=== PATIENT | female | born 1950 | race Caucasian/White ===

== ENCOUNTER 2018-02-19 06:25 | Day surgery (SDC) | payer MEDICARE ==
--- NOTE | 2018-02-18 09:31 | HP ---
DATE: 02/19/18 ANTICIPATED PROCEDURE: 1. Colonoscopy. HISTORY OF PRESENT ILLNESS: 67 years old. 3-4 years out from a previous colonoscopy with polyps. PAST MEDICAL HISTORY: ALLERGIES: NONE. CURRENT MEDICATIONS: Omeprazole. SURGERIES: Thyroidectomy, vocal cord surgery, shoulder surgery, . SOCIAL HISTORY: Negative. FAMILY HISTORY: Negative. PHYSICAL EXAMINATION: Vital signs normal. CHEST: Clear. COR: Regular. IMPRESSION: 1. FOLLOW-UP SCREENING.
[~2018-02-19 06:25] MED LIST: Lactated Ringers 1,000 ML IV ONE
[2018-02-19] MEDS ORDERED: DIPRIVAN 200 MG/20 ML IV ONE (06:26)
[2018-02-19] MEDS ORDERED: Ketamine HCl 50 MG/ML IJ ONE (06:26)
[2018-02-19] MEDS ORDERED: Lactated Ringers 1,000 ML IV SCH (07:00)
[2018-02-19 10:19] VITALS: O2SAT 93
[2018-02-19 10:24] VITALS: BP 133/74; PULSE 61
--- NOTE | 2018-02-23 09:01 | OP ---
PROCEDURE DATE/TIME: 02/19/2018 0914. PREOPERATIVE DIAGNOSIS: A 3-4 year follow-up of polyps. POSTOPERATIVE DIAGNOSIS: Normal except for moderate internal hemorrhoids, moderate diverticulosis of the sigmoid colon. PROCEDURE: Colonoscopy complete to cecum. SURGEON: Dr. Adam Lujan. TRAFFIC CONTROL TECHNICIAN: Dr. Ricketts. ANESTHESIA: MAC. COMPLICATIONS: None. CONDITION: Stable. INDICATION FOR PROCEDURE: Patient requiring evaluation. DESCRIPTION OF PROCEDURE: The patient was taken to the endoscopy suite. MAC sedation provided. Anal digital examination satisfactory. Satisfactory tone. Scope was introduced. Moderate internal hemorrhoids. There was moderate diverticulosis with a fair amount of angulation. Care and patience was exercised. The scope was sequentially advanced. Scope advanced to the cecum. Base of the cecum, ileocecal valve were normal. There was one incidental small submucosal lipoma in the transverse colon. Splenic flexure, descending, sigmoid with moderate almost severe diverticulosis present. Scope withdrawn. The patient tolerated the procedure satisfactorily. Findings discussed with the family in the waiting room. We will move her follow-up out to five years.
== END 2018-02-19 10:35 | disposition home or self-care (01) ==
LOC: SDC 06:25
PROVIDERS: ATTEND Surgery
DX: Z12.11 Encounter for screening for malignant neoplasm of colon (principal); K64.8 Other hemorrhoids; K57.30 Diverticulosis of large intestine without perforation or abscess without bleeding; Z86.010 Personal history of colon polyps
CPT/HCPCS: J2704

== ENCOUNTER 2020-12-06 13:10 | Day surgery (SDC) | payer MEDICARE ==
[2020-12-06] MEDS ORDERED: BUPIVACAINE 0.5% VIAL IJ ONE (13:11)
[2020-12-06] MEDS ORDERED: Depo-Medrol 40 MG/ML IM ONE (13:11)
[2020-12-06] MEDS ORDERED: Lactated Ringers 1,000 ML IV ONE (13:53)
[2020-12-06] MEDS ORDERED: Ketamine HCl 50 MG/ML ONE (14:58)
[2020-12-06] MEDS ORDERED: DIPRIVAN 200 MG/20 ML IV ONE (14:58)
--- NOTE | 2020-12-06 16:28 | XRAY ---
Indication: Right hip injection. Intraoperative fluoroscopy provided for 6 seconds. Single digital spot image obtained prone demonstrates needle tip projecting just lateral to the right greater trochanter. Small amount of contrast injected for needle tip placement. Correlate with intraoperative findings/report.
--- NOTE | 2020-12-06 16:28 | XRAY ---
Indication: Right SI joint injection. Intraoperative fluoroscopy provided for 6 seconds. 2 digital spot images submitted for interpretation demonstrates posterior needle tip projecting over the inferior right SI joint. Correlate with intraoperative findings/report.
--- NOTE | 2020-12-06 16:30 | XRAY ---
6 seconds fluoroscopy time in surgery for injection of the greater trochanteric bursa of the right hip.
--- NOTE | 2020-12-06 16:30 | XRAY ---
6 seconds fluoroscopy time in surgery for injection of the right SI joint.
== END 2020-12-06 15:27 | disposition home or self-care (01) ==
LOC: SDC-PAIN 13:10
PROVIDERS: ATTEND Psychiatry & Neurology Pain Medicine
DX: M46.1 Sacroiliitis, not elsewhere classified (principal); M70.61 Trochanteric bursitis, right hip; J44.9 Chronic obstructive pulmonary disease, unspecified; G47.30 Sleep apnea, unspecified; Z79.899 Other long term (current) drug therapy
CPT/HCPCS: 20610; 27096; 72020; 73501; 77002; G0260; 99100; J1030; J2704; Q9966

== ENCOUNTER 2021-04-11 12:39 | Day surgery (SDC) | payer MEDICARE ==
[2021-04-11] MEDS ORDERED: BUPIVACAINE 0.5% VIAL IJ ONE (12:40)
[2021-04-11] MEDS ORDERED: Depo-Medrol 40 MG/ML IM ONE (12:40)
[2021-04-11] MEDS ORDERED: DIPRIVAN 200 MG/20 ML IV ONE (14:10)
[2021-04-11] MEDS ORDERED: Lactated Ringers 1,000 ML IV ONE (16:37)
--- NOTE | 2021-04-11 16:40 | XRAY ---
Indication: Bilateral SI joint injections. Intraoperative fluoroscopy provided for 21 seconds. 2 lateral digital spot image submitted for interpretation demonstrates posterior needle tip projecting mid sacrum. Correlate with intraoperative findings/report.
--- NOTE | 2021-04-11 16:43 | XRAY ---
Indication: Bilateral greater trochanter bursa injections. Intraoperative fluoroscopy provided for 17 seconds. 2 digital spot image submitted for interpretation demonstrates needle tip projecting lateral to the left and right greater trochanters. Small amount of contrast injected for both needle tip placement. Correlate with intraoperative findings/report.
--- NOTE | 2021-04-11 17:01 | XRAY ---
21 seconds fluoroscopy time in surgery for injections of both SI joints.
--- NOTE | 2021-04-11 17:12 | XRAY ---
17 seconds fluoroscopy time in surgery for injections of bilateral greater trochanters of both hips.
== END 2021-04-11 14:42 | disposition home or self-care (01) ==
LOC: SDC-PAIN 12:39
PROVIDERS: ATTEND Psychiatry & Neurology Pain Medicine
DX: M46.1 Sacroiliitis, not elsewhere classified (principal); M70.62 Trochanteric bursitis, left hip; M70.61 Trochanteric bursitis, right hip; Z79.899 Other long term (current) drug therapy
CPT/HCPCS: 20610; 27096; 72202; 73521; 77002; 99100; J1030; J2704; Q9966; G0260

== ENCOUNTER 2021-05-14 12:43 | Observation (INO) | payer MEDICARE ==
--- NOTE | 2021-05-14 14:35 | ERPHSYRPT ---
- History of Present Illness Source: patient Exam Limitations: no limitations Patient Subjective Stated Complaint: Pt went to [facility] and was found to have a pleural effusion and was then sent to the ER for further testing Triage Nursing Assessment: Pt was brought to the ER by her daughter, vitals wnl, denies pain, appears short of breath, bounding pulses, skin n/w/d, denies any other issues Physician History: 70 yo wf w h/o COPD presents w increasing dyspnea for 4 days, mild cough, and mild coryza. Pt seen in clinic today and sent to ER. She denies fever/ESQUEDA/myalgias/chest pain/N/V/melena/hematochezia. Pt is fully vaccinated for CV19. Timing/Duration: other (4 days) Activities at Onset: rest Severity of Dyspnea-Max: mild Severity of Dyspnea-Current: mild Possible Cause: chronic episodes Modifying Factors: Improves With: activity Associated Symptoms: productive cough, No chest pain/discomfort, No edema, No fever, No insomnia, No loss of appetite, No lightheadedness, No wheezing, No weakness, No ankle swelling, No chills, No hemoptysis, No calf pain, No dizziness, No heaviness, No heart racing, No lightheadedness, No leg swelling, No muscle spasms feet, No muscle spasms hands, No painful breathing, No sweating, No tightness Allergies/Adverse Reactions: No Known Drug Allergies Allergy (Verified 05/14/21 13:06) Home Medications: Levothyroxine Sodium 112 mcg PO DAILY 02/04/18 [History] Omeprazole 20 MG [Prilosec 20 mg] 20 mg PO BID 02/04/18 [History] Escitalopram Oxalate 10 mg [Lexapro 10 MG] 10 mg PO HS 05/14/21 [History] Gabapentin 300 mg [Neurontin 300 mg] 300 mg PO 05/14/21 [History] Ropinirole HCl 2 mg PO 05/14/21 [History] Tiotropium [employer] [Spiriva] 1 mcg IH UD 05/14/21 [History] Travel Risk - International Travel Have you traveled outside of the country in past 3 weeks: No - Coronavirus Screening Are you exhibiting any of the following symptoms?: Yes Symptoms: Shortness of Breath Close contact with a COVID-19 positive Pt in past 14-21 Days: No - Vaccine Status Have you recieved a Covid-19 vaccination: Yes Cell Preparer: Pfizer - Vaccination Dates Date of 2cond Vaccination (if applicable): 10/2020 - Review of Systems Constitutional: No Symptoms Eyes: No Symptoms Ears, Nose, & Throat: No Symptoms Respiratory: Cough, Dyspnea, Dyspnea on Exertion (BAKER) Cardiac: No Symptoms Abdominal/Gastrointestinal: No Symptoms Genitourinary Symptoms: No Symptoms Musculoskeletal: No Symptoms Skin: No Symptoms Neurological: No Symptoms Psychological: No Symptoms Endocrine: No Symptoms Hematologic/Lymphatic: No Symptoms Immunological/Allergic: No Symptoms - Past Medical History Pertinent Past Medical History: Yes Neurological History: No Pertinent History ENT History: No Pertinent History Cardiac History: Other Respiratory History: Bronchitis, COPD Endocrine Medical History: Hypothyroidism Musculoskeletal History: Osteoarthritis GI Medical History: GERD History: No Pertinent History Psycho-Social History: Anxiety Female Reproductive Disorders: No Pertinent History Other Medical History: SEES DR. MAYS DUE TO HX OF SLIGHTLY ENLARGED HEART. GERD. SX HX: THYROIDECTOMY, CHOLECYSTECTOMY, RIGHT ROTATOR CUFF REPAIR 2005 - Past Surgical History Past Surgical History: Yes Neuro Surgical History: No Pertinent History Cardiac: No Pertinent History Respiratory: No Pertinent History Gastrointestinal: Cholecystectomy Genitourinary: No Pertinent History Musculoskeletal: Orthopedic Surgery Female Surgical History: Section Other Surgical History: Rotator cuff repair, r knee. colonoscopy - Social History Smoking Status: Former smoker How long have you smoked: 25 years Exposure to second hand smoke: No Drug Use: none Patient Lives Alone: No Significant Family History: no pertinent family hx - Female History Hx Now: No - Nursing Vital Signs Nursing Vital Signs: Initial Vital Signs Temperature 98.4 F 05/14/21 12:58 Pulse Rate 70 05/14/21 12:58 Respiratory Rate 15 05/14/21 12:58 Blood Pressure 127/55 05/14/21 12:58 O2 Sat by Pulse Oximetry 100 05/14/21 12:58 Pain Scale Pain Intensity 0 WNL - Physical Exam General Appearance: no apparent distress Eye Exam: PERRL/EOMI, eyes nml inspection Ears, Nose, Throat Exam: hearing grossly normal, normal ENT inspection, normal pharynx Neck Exam: normal inspection, non-tender, supple, full range of motion, No Brudzinski, No Kernig's, No meningismus Respiratory Exam: normal breath sounds, lungs clear, airway intact, No respiratory distress Cardiovascular/Chest Exam: normal heart sounds, regular rate/rhythm, normal peripheral pulses, No murmur, No edema, No JVD Abdominal/Gastrointestinal Exam: soft, normal bowel sounds Extremity Exam: non-tender, normal range of motion, normal inspection, normal capillary refill, no calf tenderness Peripheral Pulses Exam: carotid (R): 2+, carotid (L): 2+ Neurologic Exam: alert, oriented x 3, cooperative, dry goods clerk II-XII nml as tested, normal mood/affect, nml cerebellar function, nml station & gait, sensation nml Skin Exam: normal color, warm, dry Lymphatic Exam: No adenopathy SpO2 Interpretation: normal SpO2: 90 - Course EKG Interpreted by Me: RATE (NSR/R69/RBBB/Poosible old inferior [place]/Prolonged QTc) Ordered Tests: Active Orders 24 hr Category Date Time Status EKG-ER Only STAT Care 05/14/21 14:35 Completed CBC AM.LAB Lab 05/15/21 04:00 Ordered CBC W DIFF Stat Lab 05/14/21 14:35 Results CMP AM.LAB Lab 05/15/21 04:00 Ordered CMP Stat Lab 05/14/21 14:52 Completed Manual Differential NC Stat Lab 05/14/21 14:35 Results NT PRO BNP Stat Lab 05/14/21 14:52 Completed PROTIME WITH INR Stat Lab 05/14/21 14:52 Completed PTT Stat Lab 05/14/21 14:52 Completed Pathologist Review Stat Lab 05/14/21 14:35 Results Stool Occult Blood [FECAL OCCULT BLOOD - SCREENING] Lab 05/14/21 Ordered Stat TROPONIN Q3H Lab 05/14/21 14:52 Completed TROPONIN Q3H Lab 05/14/21 17:50 Completed TROPONIN Q3H Lab 05/14/21 20:45 Completed TROPONIN Q3H Lab 05/14/21 23:45 Ordered TROPONIN Q3H Lab 05/15/21 02:45 Ordered Transfer Order Routine Transfer 05/14/21 Completed Medication Summary Generic Name Dose Route Start Last Admin Trade Name Freq PRN Reason Stop Dose Admin Albuterol Sulfate 2.5 mg 05/14/21 18:28 Proventil 2.5 Mg/3 Ml Neb IH 06/13/21 18:27 Q4H PRN PRN SHORTNESS OF BREATH/WHEEZING Escitalopram Oxalate 10 mg 05/14/21 23:02 05/14/21 23:17 Lexapro 10 Mg PO 06/13/21 23:01 10 mg HS EKATERINA Administration Gabapentin 300 mg 05/14/21 23:02 05/14/21 23:19 Neurontin 300 Mg PO 06/13/21 23:01 300 mg HS EKATERINA Administration Sodium Chloride 1,000 mls @ 50 mls/hr 05/14/21 18:30 05/14/21 18:33 Sodium Chloride 0.9% 1000 Ml IV 06/13/21 18:29 50 mls/hr .Q20H EKATERINA Administration Ondansetron HCl 4 mg 05/14/21 16:10 Zofran 4 Mg/2 Ml Vial IV 06/13/21 16:09 Q6H PRN PRN NAUSEA/VOMITING Pantoprazole Sodium 40 mg 05/14/21 23:03 05/14/21 23:18 Protonix 40mg Tablet PO 06/13/21 23:02 40 mg BID EKATERINA Administration Ropinirole HCl 2 mg 05/14/21 23:04 05/14/21 23:19 Requip 2mg Tab PO 06/13/21 23:03 2 mg HS EKATERINA Administration Fluticasone/Salmeterol 2 puff 05/15/21 07:00 Advair Hfa 115/21 Common Canister* IH 06/14/21 06:59 BIDRT EKATERINA Tiotropium [employer] 1 ea 05/15/21 10:00 Spiriva 18 Mcg/Cap Inhaler 06/14/21 09:59 DAILY EKATERINA Discontinued Medications Generic Name Dose Route Start Last Admin Trade Name Freq PRN Reason Stop Dose Admin Albuterol Sulfate 2.5 mg 05/14/21 19:00 Proventil 2.5 Mg/3 Ml Neb IH 06/13/21 18:59 Q4HRT EKATERINA Furosemide 20 mg 05/14/21 16:13 05/14/21 20:32 Lasix 20 Mg/2 Ml IV 05/14/21 16:14 20 mg AFTER EA UNIT BLOOD ONE Administration Furosemide Confirm 05/14/21 20:28 Lasix 20 Mg/2 Ml Administered 05/14/21 20:29 Dose 20 mg .ROUTE .STK-MED ONE Sodium Chloride Confirm 05/14/21 20:38 Sodium Chloride 0.9% 250 Ml Administered 05/14/21 20:39 Dose 250 mls @ ud IV .STK-MED ONE Lab/Rad Data: Laboratory Result Diagrams 05/14/21 14:35 05/14/21 14:52 Laboratory Results 05/14/21 05/14/21 05/14/21 Range/Units 17:50 16:51 15:05 WBC (4.0-10.5) K/mm3 RBC (4.1-5.4) M/mm3 Hgb (12.0-16.0) gm/dl Hct (35-47) % MCV (78-100) fl MCH (26-32) pg MCHC (32-36) g/dl RDW (11.5-14.0) % Plt Count (150-450) K/mm3 MPV (7.5-11.0) fl Smear Path Review PT (9.4-12.5) SECONDS INR (0.8-3.0) APTT (25.1-36.5) SECONDS Sodium (137-145) mmol/L Potassium (3.5-5.1) mmol/L Chloride (98-107) mmol/L Carbon Dioxide (22-30) mmol/L Anion Gap (5-15) MEQ/L BUN (7-17) mg/dL Creatinine (0.52-1.04) mg/dL Estimated GFR ML/MIN Glucose (74-106) mg/dL Calcium (8.4-10.2) mg/dL Total Bilirubin (0.2-1.3) mg/dL AST (14-36) U/L ALT (0-35) U/L Alkaline Phosphatase (38-126) U/L Troponin I < 0.012 (0.000-0.034) ng/mL NT-Pro-B Natriuret Pep (0-900) pg/mL Serum Total Protein (6.3-8.2) g/dL Albumin (3.5-5.0) g/dL SARS-CoV-2 (PCR) NEGATIVE (NEGATIVE) ABO Group Rh Factor Antibody Screen (NEGATIVE) Crossmatch COMPATIBLE (COMPATIBLE) 05/14/21 05/14/21 05/14/21 Range/Units 15:05 14:52 14:52 WBC (4.0-10.5) K/mm3 RBC (4.1-5.4) M/mm3 Hgb (12.0-16.0) gm/dl Hct (35-47) % MCV (78-100) fl MCH (26-32) pg MCHC (32-36) g/dl RDW (11.5-14.0) % Plt Count (150-450) K/mm3 MPV (7.5-11.0) fl Smear Path Review PT 13.0 H (9.4-12.5) SECONDS INR 1.10 (0.8-3.0) APTT 26.1 (25.1-36.5) SECONDS Sodium (137-145) mmol/L Potassium (3.5-5.1) mmol/L Chloride (98-107) mmol/L Carbon Dioxide (22-30) mmol/L Anion Gap (5-15) MEQ/L BUN (7-17) mg/dL Creatinine (0.52-1.04) mg/dL Estimated GFR ML/MIN Glucose (74-106) mg/dL Calcium (8.4-10.2) mg/dL Total Bilirubin (0.2-1.3) mg/dL AST (14-36) U/L ALT (0-35) U/L Alkaline Phosphatase (38-126) U/L Troponin I < 0.012 (0.000-0.034) ng/mL NT-Pro-B Natriuret Pep (0-900) pg/mL Serum Total Protein (6.3-8.2) g/dL Albumin (3.5-5.0) g/dL SARS-CoV-2 (PCR) (NEGATIVE) ABO Group B Rh Factor POSITIVE Antibody Screen NEGATIVE (NEGATIVE) Crossmatch COMPATIBLE (COMPATIBLE) 05/14/21 05/14/21 Range/Units 14:52 14:35 WBC 10.7 H (4.0-10.5) K/mm3 RBC 3.44 L (4.1-5.4) M/mm3 Hgb 5.5 L* (12.0-16.0) gm/dl Hct 22.2 L (35-47) % MCV 64.5 L (78-100) fl MCH 16.0 L (26-32) pg MCHC 24.8 L (32-36) g/dl RDW 21.3 H (11.5-14.0) % Plt Count 575 H (150-450) K/mm3 MPV 10.7 (7.5-11.0) fl Smear Path Review Pending PT (9.4-12.5) SECONDS INR (0.8-3.0) APTT (25.1-36.5) SECONDS Sodium 138 (137-145) mmol/L Potassium 4.0 (3.5-5.1) mmol/L Chloride 101 (98-107) mmol/L Carbon Dioxide 27 (22-30) mmol/L Anion Gap 13.7 (5-15) MEQ/L BUN 13 (7-17) mg/dL Creatinine 0.75 (0.52-1.04) mg/dL Estimated GFR > 60.0 ML/MIN Glucose 90 (74-106) mg/dL Calcium 7.3 L (8.4-10.2) mg/dL Total Bilirubin 0.90 (0.2-1.3) mg/dL AST 17 (14-36) U/L ALT 12 (0-35) U/L Alkaline Phosphatase 72 (38-126) U/L Troponin I (0.000-0.034) ng/mL NT-Pro-B Natriuret Pep 348 (0-900) pg/mL Serum Total Protein 7.1 (6.3-8.2) g/dL Albumin 3.9 (3.5-5.0) g/dL SARS-CoV-2 (PCR) (NEGATIVE) ABO Group Rh Factor Antibody Screen (NEGATIVE) Crossmatch (COMPATIBLE) - Progress Progress Note: 05/14/21 16:[address] Beatty Discussed with : Ministerio Counseled pt/family regarding: lab results, diagnosis, need for follow-up, rad results - Departure Departure Disposition: Observation Clinical Impression: Microcytic anemia Condition: Stable Critical Care Time: No
[2021-05-14 14:50] LABS: Hematocrit 22.2 % (35-47); Mean Cell Volume 64.5 fl (78-100); Mean Corpuscular Hgb Concent. 24.8 g/dl (32-36); Mean Platelet Volume 10.7 fl (7.5-11.0); Platelet Count 575 K/mm3 (150-450); Red Blood Count 3.44 M/mm3 (4.1-5.4); Red Cell Distribution Width 21.3 % (11.5-14.0); White Blood Count 10.7 K/mm3 (4.0-10.5)
[2021-05-14 14:53] LABS: Hemoglobin 5.5 gm/dl (12.0-16.0)
[2021-05-14 14:53] LABS: INR 1.1 (0.8-3.0)
[2021-05-14 14:56] LABS: PTT 26.1 SECONDS (25.1-36.5)
[2021-05-14 15:06] LABS: ALBUMIN 3.9 g/dL (3.5-5.0); ALKALINE PHOSPHATASE 72 U/L (38-126); ANION GAP 13.7 MEQ/L (5-15); BLOOD UREA NITROGEN 13 mg/dL (7-17); CHLORIDE 101 mmol/L (98-107); Calcium 7.3 mg/dL (8.4-10.2); Carbon Dioxide 27 mmol/L (22-30); Creatinine 1 0.75 mg/dL (0.52-1.04); EST GLOMERULAR FILTRATION RATE > 60.0 ML/MIN; Glucose 90 mg/dL (74-106); NT PRO BNP 348 pg/mL (0-900); SGOT/AST 17 U/L (14-36); SGPT/ALT 12 U/L (0-35); SODIUM 138 mmol/L (137-145); Total Protein 7.1 g/dL (6.3-8.2)
[2021-05-14] MEDS ORDERED: Zofran 4 MG/2 ML VIAL IV PRN (16:10)
[2021-05-14] MEDS ORDERED: Lasix 20 MG/2 ML IV ONE (16:13)
[2021-05-14 17:05] LABS: ABO TYPING B; Antibody Screen NEGATIVE (NEGATIVE); CROSS MATCH (PRBC) COMPATIBLE (COMPATIBLE); RH TYPING POSITIVE
[2021-05-14] MEDS ORDERED: PROVENTIL 2.5 MG/3 ML NEB IH PRN (18:28)
[2021-05-14] MEDS: Sodium Chloride 0.9% 1000 ML 1,000 ML IV SCH (18:33)
[2021-05-14] MEDS ORDERED: PROVENTIL 2.5 MG/3 ML NEB IH SCH (19:00)
[2021-05-14] MEDS ORDERED: Lasix 20 MG/2 ML ONE (20:28)
[2021-05-14] MEDS ORDERED: Sodium Chloride 0.9% 250 ML 250 ML IV ONE (20:38)
[2021-05-14] MEDS ORDERED: NEURONTIN 300 MG PO SCH (23:02)
[2021-05-14] MEDS ORDERED: Lexapro 10 MG PO SCH (23:02)
[2021-05-14] MEDS ORDERED: Protonix 40MG Tablet PO SCH (23:03)
[2021-05-14] MEDS ORDERED: REQUIP 2MG TAB PO SCH (23:04)
[2021-05-14] MEDS ORDERED: Lasix 40 MG/4 ML ONE (23:40)
[2021-05-15] MEDS: Sodium Chloride 0.9% 1000 ML 1,000 ML IV SCH (02:25)
[2021-05-15 05:19] LABS: Slide Review 1 YES
[2021-05-15 05:20] VITALS: O2SAT 92
[2021-05-15] MEDS ORDERED: TYLENOL 325 MG PO PRN (06:20)
[2021-05-15 06:32] LABS: Hematocrit 29.1 % (35-47); Hemoglobin 7.8 gm/dl (12.0-16.0); Mean Corpuscular Hemoglobin 18.5 pg (26-32); Mean Corpuscular Hgb Concent. 26.8 g/dl (32-36); Mean Platelet Volume 10.6 fl (7.5-11.0); Platelet Count 516 K/mm3 (150-450); Red Blood Count 4.22 M/mm3 (4.1-5.4); Red Cell Distribution Width 23.6 % (11.5-14.0); White Blood Count 11.1 K/mm3 (4.0-10.5)
[2021-05-15] MEDS ORDERED: Spiriva 18 Mcg/Cap Inhaler IH ONE (06:48)
[2021-05-15] MEDS ORDERED: Advair Hfa 115/21 Common canister IH SCH (07:00)
[2021-05-15 07:17] LABS: ALBUMIN 3.7 g/dL (3.5-5.0); ALKALINE PHOSPHATASE 66 U/L (38-126); ANION GAP 13.7 MEQ/L (5-15); BLOOD UREA NITROGEN 15 mg/dL (7-17); CHLORIDE 102 mmol/L (98-107); Calcium 6.8 mg/dL (8.4-10.2); Carbon Dioxide 28 mmol/L (22-30); Creatinine 1 0.75 mg/dL (0.52-1.04); EST GLOMERULAR FILTRATION RATE > 60.0 ML/MIN; Glucose 95 mg/dL (74-106); SGOT/AST 16 U/L (14-36); SGPT/ALT 10 U/L (0-35); SODIUM 140 mmol/L (137-145); Total Protein 6.7 g/dL (6.3-8.2)
[2021-05-15 08:21] LABS: Slide Review YES
[2021-05-15 08:54] VITALS: BP 116/56; PULSE 71
[2021-05-15] MEDS ORDERED: Spiriva 18 Mcg/Cap Inhaler IH SCH (10:00)
--- NOTE | 2021-05-16 13:04 | SSS ---
DISCHARGE DIAGNOSES: 1) IRON DEFICIENCY ANEMIA. 2) MILD PLEURAL EFFUSION. HISTORY: The patient is a 70 year-old white female who went to the [facility] due to complaints of what she thought was exacerbation of her chronic obstructive pulmonary disease. They did x-rays and found some pleural effusion and on evaluation on her testing otherwise her hemoglobin was found to be less than 6. The patient does report previous history of anemia but has not been noticing any blood in the stool. She has not had a period for years and she has sustained no bruising or bleeding otherwise. The patient was admitted to the hospital for 2 units of packed red blood cells. The patient's vital signs have been stable during her stay here. After receiving 2 units of blood she felt better and her hemoglobin was up to 7.8. PAST MEDICAL/SURGICAL HISTORY: Otherwise her medical history is significant for the chronic obstructive pulmonary disease, hypothyroid, osteoarthritis, gastroesophageal reflux disease, anxiety. She does see Dr. Box due to history of slightly enlarged heart. She previously had a thyroidectomy, cholecystectomy and right rotator cuff repair. HOME MEDICATIONS: Currently are escitalopram 10 mg a day, gabapentin 300 mg at night, levothyroxine 112 mcg daily, omeprazole 20 mg daily, ropinirole 2 mg at night, Spiriva inhaler. ALLERGIES: NKDA. PHYSICAL EXAMINATION: Revealed a well-nourished, well-developed 70 year-old white female alert, oriented x3 and good disposition. HEENT: Normocephalic, atraumatic. Pupils equal round reactive to light. Extraocular movements intact. Oropharynx is pink and moist. NECK: Supple without lymphadenopathy, thyromegaly or JVD. CHEST: Clear to auscultation. HEART: Regular rate and rhythm without significant murmurs, rubs or gallops heard. ABDOMEN: Soft. No palpable masses. EXTREMITIES: Without significant cyanosis, clubbing or edema. LAB DATA AND TESTS: Her laboratory studies otherwise noted her INR to be 1.10. Her metabolic panel was entirely normal with a BUN 13, creatinine 0.75. Troponins less than 0.012 on two separate occasions. HOSPITAL COURSE: She did receive 2 units of packed red blood cells. She is now ready for discharge home again. She was instructed to follow up in the office in one week. She was given iron 325 mg tablet daily for iron deficiency anemia. We discussed with the patient follow up with panendoscopy for evaluation of a microcytic anemia. We will again check her in the office in a week after the iron has been given and see if her bone marrow is responding. Otherwise, the patient will continue her usual medications. She was instructed specifically to stay off aspirin and Aleve. She reports she does take ibuprofen occasionally and she was also instructed not to take this either. The patient verbalized her understanding and will follow up in our office in the next week.
== END 2021-05-15 14:25 | disposition home or self-care (01) ==
LOC: ED 12:43 → MED SURG 18:01
PROVIDERS: ADMIT Family Medicine; ATTEND Family Medicine
DX: D50.9 Iron deficiency anemia, unspecified (principal); J90 Pleural effusion, not elsewhere classified; Z79.899 Other long term (current) drug therapy; Z20.822 Contact with and (suspected) exposure to COVID-19
CPT/HCPCS: 36000; 36415; 36430; 80053; 83540; 83880; 84484; 85025; 85027; 85610; 85730; 86850; 86900; 86901; 86922; 93005; 94640; 94760; 99285; G0328; G0378; P9016; U0003; 71045; 82274; J1940; A9270-GY

== ENCOUNTER 2021-05-28 06:02 | Day surgery (SDC) | payer MEDICARE ==
[2021-05-28] MEDS ORDERED: Lactated Ringers 1,000 ML IV SCH (06:30)
[2021-05-28] MEDS ORDERED: DIPRIVAN 200 MG/20 ML IV ONE ×3 (07:31→07:57)
[2021-05-28 08:59] VITALS: BP 120/65; PULSE 80; O2SAT 92
--- NOTE | 2021-05-29 08:38 | OP ---
SURGERY DATE: 05/28/2021 SURGERY TIME: 729 PREOPERATIVE DIAGNOSIS: 1. ANEMIA. 2. HISTORY OF COLON POLYPS. POSTOPERATIVE DIAGNOSIS: 1. NORMAL UPPER ENDOSCOPY. 2. MODERATE SIGMOID DIVERTICULOSIS, OTHERWISE NORMAL COLON. PROCEDURE: 1. Esophagogastroduodenoscopy. 2. Colonoscopy. SURGEON: Dr. Beatty. ANESTHESIA: MAC, given by the Anesthesia Department. BRIEF HISTORY: The patient is a 71 y/o WF who presents with anemia. The patient also had a history of previous colon polyps removed. The patient was felt to need to have endoscopic evaluation. It was noted the patient's stool test was negative for blood. The patient was described the risks of the procedure including the risk of perforation, phlebitis, untoward reaction to medication, bleeding, and missed lesions. The patient verbalized her understanding and desired to have the procedure performed. DESCRIPTION OF PROCEDURE: The patient was given the medications by the Anesthesia Department. She was placed in the left lateral decubitus position. A bite block was placed and the flexible Olympus gastroscope was used to intubate the oropharynx. A view of the esophagus was developed and normal throughout its length. The stomach was entered where normal gastric rugal folds were seen. These distended nicely with the insufflation of air. The scope was passed along the greater curvature of the stomach to the antrum. The pylorus was encountered and intubated. The duodenum was inspected and found to be normal. The scope was withdrawn towards the stomach again. Retroflex view was obtained of the lesser curvature, fundus, and cardia regions of the stomach and these appeared to be normal. Careful inspection upon withdrawal of the stomach and esophagus revealed no other lesions. The scope was removed from the patient. Next, a digital rectal examination was performed and revealed normal anal sphincter tone and no masses. The flexible Olympus pediatric colonoscope was used to intubate the rectum. A view of the colon was developed sequentially to the cecum. Upon insertion and withdrawal, there was noted no significant pathology other than moderate sigmoid diverticulosis. The scope was removed from the patient who tolerated the procedure well and was sent back to OP recovery in good condition. The prep was noted to be fair to good.
== END 2021-05-28 09:11 | disposition home or self-care (01) ==
LOC: SDC 06:02
PROVIDERS: ATTEND Family Medicine
DX: K57.30 Diverticulosis of large intestine without perforation or abscess without bleeding (principal); D64.9 Anemia, unspecified; Z86.010 Personal history of colon polyps; Z79.899 Other long term (current) drug therapy
CPT/HCPCS: 99100; J2704

== ENCOUNTER 2021-12-13 12:04 | Emergency (ER) | payer MEDICARE ==
[2021-12-13 12:20] VITALS: BP 157/62; PULSE 67; O2SAT 92
--- NOTE | 2021-12-13 12:44 | ERPHSYRPT ---
- History of Present Illness Time Seen by Provider: 12/13/21 12:25 Source: patient Exam Limitations: no limitations Patient Subjective Stated Complaint: L knee pain since yesterday Triage Nursing Assessment: Patient presents to ED via wheelchair with cc of L knee pain. Pt is A &OX3, answers questions appropriately. Assisted into bed, given blanket. VSS. No bruising, swelling, or deformity noted to L knee. Pedal pulses 2+ bilaterally. Skin PWD. Denies fall/injury. No open areas noted to knee. Daughter at bedside. Pt given call light. Physician History: Patient is a 71-year-old female presents to emergency department for evaluation of left knee pain. Left knee pain started yesterday. No trauma. No falls no injuries reported. Pain described as an ache that is well localized. No radiation. Pain worse with movement and palpation. Weightbearing also reproduces symptoms. Pain improved with rest. No associated numbness tingling or weakness. Patient denies a history of the same. She voices no other compla ints or concerns at this time. Method of Injury: unknown Quality: intermittent Severity of Pain-Max: moderate Severity of Pain-Current: moderate Lower Extremities Pain: knee: left Modifying Factors: Improves With: movement Associated Symptoms: none Allergies/Adverse Reactions: No Known Drug Allergies Allergy (Verified 05/28/21 06:14) Home Medications: Levothyroxine Sodium 112 mcg PO DAILY 02/04/18 [History] Omeprazole 20 MG [Prilosec 20 mg] 20 mg PO BID 02/04/18 [History] Escitalopram Oxalate 10 mg [Lexapro 10 MG] 10 mg PO HS 05/14/21 [History] Gabapentin 300 mg [Neurontin 300 mg] 300 mg PO HS 05/14/21 [History] Ropinirole HCl 2 mg PO HS 05/14/21 [History] Tiotropium [place] [Spiriva] 1 mcg IH UD 05/14/21 [History] Budesonide/Formoterol Fumarate [Symbicort 160-4.5 Mcg Inhaler] 10.2 gm IH BID 05/24/21 [History] Hx Tetanus, Diphtheria Vaccination/Date Given: No Hx Influenza Vaccination/Date Given: Yes Travel Risk - International Travel Have you traveled outside of the country in past 3 weeks: No - Coronavirus Screening Are you exhibiting any of the following symptoms?: No - Vaccine Status Have you recieved a Covid-19 vaccination: Yes Respiratory Care Specialist: Pfizer - Vaccination Dates Date of 2cond Vaccination (if applicable): October 2020 Comment: booster jul 2021 - Review of Systems Constitutional: No Symptoms, No Fever, No Chills Eyes: No Symptoms Ears, Nose, & Throat: No Symptoms Respiratory: No Symptoms, No Cough, No Dyspnea Cardiac: No Symptoms, No Chest Pain, No Edema, No Syncope Abdominal/Gastrointestinal: No Symptoms, No Abdominal Pain, No Nausea, No Vomiting, No Diarrhea Genitourinary Symptoms: No Symptoms, No Dysuria Musculoskeletal: No Symptoms, No Back Pain, No Neck Pain Skin: No Symptoms, No Rash Neurological: No Symptoms, No Dizziness, No Focal Weakness, No Sensory Changes Psychological: No Symptoms Endocrine: No Symptoms Hematologic/Lymphatic: No Symptoms Immunological/Allergic: No Symptoms All Other Systems: Reviewed and Negative - Past Medical History Pertinent Past Medical History: Yes Neurological History: No Pertinent History ENT History: No Pertinent History Cardiac History: Other Respiratory History: Bronchitis, COPD Endocrine Medical History: Hypothyroidism Musculoskeletal History: Osteoarthritis GI Medical History: GERD History: No Pertinent History Psycho-Social History: Anxiety Female Reproductive Disorders: No Pertinent History Other Medical History: SEES DR. MAYS DUE TO HX OF SLIGHTLY ENLARGED HEART.(states a long time ago". GERD. SX HX: THYROIDECTOMY, CHOLECYSTECTOMY, RIGHT ROTATOR CUFF REPAIR 2005 - Past Surgical History Past Surgical History: Yes Neuro Surgical History: No Pertinent History Cardiac: No Pertinent History Respiratory: No Pertinent History Gastrointestinal: Cholecystectomy Genitourinary: No Pertinent History Musculoskeletal: Orthopedic Surgery Female Surgical History: Section Other Surgical History: Rotator cuff repair, r knee. colonoscopy - Social History Smoking Status: Former smoker How long have you smoked: 25 years Exposure to second hand smoke: No Drug Use: none Patient Lives Alone: No Significant Family History: no pertinent family hx - Nursing Vital Signs Nursing Vital Signs: Initial Vital Signs Temperature 97.5 F 12/13/21 12:13 Pulse Rate 67 12/13/21 12:13 Respiratory Rate 18 12/13/21 12:13 Blood Pressure 157/62 12/13/21 12:13 O2 Sat by Pulse Oximetry 92 L 12/13/21 12:13 Pain Scale Pain Intensity 10 - Physical Exam General Appearance: no apparent distress, alert Eyes, Ears, Nose, Throat Exam: normal ENT inspection, TMs normal, pharynx normal, moist mucous membranes Neck Exam: normal inspection, non-tender, supple, full range of motion Cardiovascular/Respiratory Exam: chest non-tender, normal breath sounds, regular rate/rhythm, no respiratory distress Gastrointestinal/Abdominal Exam: non-tender, soft, guarding Back Exam: normal inspection, normal range of motion, No vertebral tenderness Hips Exam: bilateral: non-tender, normal inspection, normal range of motion, no evidence of injury Legs Exam: bilateral leg: non-tender, normal inspection, normal range of motion, no evidence of injury Knees Exam: right knee: non-tender, normal inspection, normal range of motion, no evidence of injury, left knee: pain, soft tissue tenderness, other (Left lower extremity neurovascular intact distally. Compartments are soft. Cap refill less than 2 seconds. PT DP pulse palpable. Positive Homans' sign left lower extremity) Ankle Exam: bilateral ankle: non-tender, normal inspection, normal range of motion, no evidence of injury Foot Exam: bilateral foot: non-tender, normal inspection, normal range of motion, no evidence of injury Neuro/Tendon Exam: normal sensation, normal motor functions, normal tendon functions Mental Status Exam: alert, oriented x 3, cooperative Skin Exam: normal color, warm, dry SpO2: 92 O2 Delivery: Room Air - Course Nursing assessment & vital signs reviewed: Yes - Radiology Exams Knee X-ray Interpretation: Interpreted by me (Osteopenia, joint space narrowing, no other articular bony or soft tissue abnormalities.) - Radiology Ultrasound Exam Venous Lower Extremity Ultrasound: discussed w/radiologist (Per lard mixer ultrasound left lower extremity negative for DVT.) Ordered Tests: Active Orders 24 hr Category Date Time Status KNEE (3 VIEWS) Stat Exams 12/13/21 Completed VENOUS UNILAT/LIMITED EXTREMIT [US] Stat Exams 12/13/21 13:12 Ordered Medication Summary Discontinued Medications Generic Name Dose Route Start Last Admin Trade Name Freq PRN Reason Stop Dose Admin Ketorolac Tromethamine 30 mg 12/13/21 13:13 12/13/21 13:16 Ketorolac Tromethamine 30 Mg/Ml Inj IM 12/13/21 13:14 30 mg STAT ONE Administration Ketorolac Tromethamine Confirm 12/13/21 13:15 Ketorolac Tromethamine 30 Mg/Ml Inj Administered 12/13/21 13:16 Dose 30 mg .ROUTE .STK-MED ONE - Progress Progress: improved Progress Note: Patient reassessed. Pain improved. X-ray negative for fracture dislocation. There is some mild arthritis observed. Patient was home and positive. Ultrasound involved extremity negative for DVT. Patient received Toradol for pain control. Patient requested a knee brace and a gait belt. However we do not carry knee braces here. We only carry a knee immobilizer. We do not carry gait belt to dispense the patient's. Patient referred orthopedic clinic tomorrow. Patient given a prescription for Toradol. Patient agrees to follow- up with orthopedics tomorrow as scheduled. Portions of this note were created with voice recognition technology. There may be grammatical, spelling, punctuation or sound alike errors 12/13/21 14:01 Counseled pt/family regarding: diagnosis, need for follow-up, rad results - Departure Departure Disposition: Home Clinical Impression: Left knee pain Condition: Stable Critical Care Time: No Referrals: DUONG YAN NP [Primary Care Provider] - Follow up/PCP as directed Additional Instructions: Discharge/Care Plan SHERRIELESLIERNIE SULTANA was seen on 12/13/21 in the Emergency Room. The patient was counseled regarding Diagnosis,Lab results, Imaging studies, need for follow up and when to return to the Emergency Room. Prescriptions given: Discharge Note I have spoken with the patient and/or caregivers. I have explained the patient's condition, diagnosis and treatment plan based on the information available to me at this time. I have answered the patient's and/or caregiver's questions and addressed any concerns. The patient and/or caregivers have as good understanding of the patient's diagnosis, condition and treatment plan as can be expected at this point. The vital signs have been stable. The patient's condition is stable and appropriate for discharge from the emergency department. The patient will pursue further outpatient evaluation with the primary care physician or other designated or consulting physician as outlined in the discharge instructions. The patient and/or caregivers are agreeable to this plan of care and follow-up instructions have been explained in detail. The patient and/or caregivers have received these instruction. The patient/and or caregivers are aware that any significant change in condition or worsening of symptoms should prompt an immediate return to this or the closest emergency department or call 911. Outpatient Orders: Ortho Referral Time Frame: 1 Day, Facility: [facility], Location: ORTHO CLINIC
--- NOTE | 2021-12-13 13:06 | XRAY ---
Indication: Pain. No known injury. Comparison: None 3 view left knee demonstrates mild osteopenia and minimal medial joint space narrowing. No other bony, articular, or soft tissue abnormalities.
[2021-12-13] MEDS ORDERED: TORAdol 30 mg Injection IM ONE (13:13)
[2021-12-13] MEDS ORDERED: TORAdol 30 mg Injection ONE (13:15)
--- NOTE | 2021-12-13 14:21 | XRAY ---
Indication: Knee pain. Two-dimensional sonogram and color Doppler imaging of the major venous vessels of the left leg performed. Comparison: None No thrombus seen in the examined deep venous vessels of the left leg including greater saphenous vein. Veins demonstrate normal compressibility. Venous wave forms are normal with and without augmentation. Impression: Left leg negative for DVT.
== END 2021-12-13 14:19 | disposition home or self-care (01) ==
LOC: ED 12:04
DX: M25.562 Pain in left knee (principal); J44.9 Chronic obstructive pulmonary disease, unspecified; K21.9 Gastro-esophageal reflux disease without esophagitis; Z79.899 Other long term (current) drug therapy
CPT/HCPCS: 73562; 93971; 96372; 99284; J1885

== ENCOUNTER 2022-11-05 17:59 | Observation (INO) | payer MEDICARE ==
[2022-11-05] MEDS ORDERED: Zofran 4 MG/2 ML VIAL IV ONE (18:42)
[2022-11-05] MEDS ORDERED: MORPHINE SULFATE 2 MG INJ IV ONE (18:42)
[2022-11-05] MEDS ORDERED: Zofran 4 MG/2 ML VIAL ONE ×2 (18:48→20:43)
[2022-11-05] MEDS ORDERED: MORPHINE SULFATE 2 MG INJ ONE (18:48)
--- NOTE | 2022-11-05 18:52 | ERPHSYRPT ---
- History of Present Illness Time Seen by Provider: 11/05/22 18:47 Source: patient Exam Limitations: no limitations Patient Subjective Stated Complaint: Pt c/o of RLQ pain that radiates to the upper solomon abdomen since last night Triage Nursing Assessment: Pt brought to the ER by her daughter, shane villaseñor. rates pain in her abdomen as 2/10 as long as she isn't moving, when she moves it can go as high as a 10, pt does not hav a gall bladder but does have an appendix and all female parts, pt has been vomiting since last night and having dry heaves, pt has a hx of ulcers when she was really young, sees a jboss architect due to chronic anemia and has to get iron and blood transfusions and had blood work the other day which indicates she needs an iron transfusion, hx of COPD, pt has a cough and had a bloody nose earlier today which she contributed to her sinuses Physician History: Patient is 72-year-old female with a history of chronic anemia requiring iron transfusions presents to our ED for evaluation of 1 day history of abdominal pain. Pain involves the epigastrium as well as the right colon. Symptoms have been progressive. Symptoms are moderate in intensity. No specific worsening improving factors. Patient denies a history of the same. Patient has a history of cholecystectomy. Patient's appendix is intact. Symptoms are moderate in intensity. Movement and palpation reproduce symptoms. Pain improves with rest. Patient rates her pain 2 out of 10 at rest. She voices no other complaints or concerns at this time. Daughter at bedside. They voiced no other complaints or concerns. Portions of this note were created with voice recognition technology. There may be grammatical, spelling, punctuation or sound alike errors Timing/Duration: today, yesterday Severity: moderate Modifying Factors: Improves With: nothing Associated Symptoms: nausea, vomiting, No shortness of breath, No weakness Allergies/Adverse Reactions: No Known Drug Allergies Allergy (Verified 11/05/22 18:16) Home Medications: Levothyroxine Sodium 137 mcg PO DAILY 02/04/18 [History] Omeprazole 20 MG [Prilosec 20 mg] 20 mg PO BID 02/04/18 [History] Escitalopram Oxalate [Lexapro] 10 mg PO HS 05/14/21 [History] Gabapentin [Neurontin ] 400 mg PO BID 05/14/21 [History] Ropinirole HCl 2 mg PO HS 05/14/21 [History] Budesonide/Formoterol Fumarate [Symbicort 160-4.5 Mcg Inhaler] 0 gm IH BID 05/24/21 [History] Albuterol Sulfate [Albuterol Sulfate Hfa] 8.5 gm IH Q4HPRN PRN 07/30/22 [History] Celecoxib 100 mg [celeBREX 100 MG] 200 mg PO DAILY 07/30/22 [History] Hydrocodone/Acetaminophen [Hydrocodone-Acetamin 5-325 mg] 1 tab PO Q4HPRN PRN MDD 6 11/05/22 [History] Tiotropium [place] [Spiriva Respimat] 0 gm IH UD 11/05/22 [History] Hx Tetanus, Diphtheria Vaccination/Date Given: No Hx Influenza Vaccination/Date Given: Yes Hx Pneumococcal Vaccination/Date Given: Yes Travel Risk - International Travel Have you traveled outside of the country in past 3 weeks: No - Coronavirus Screening Are you exhibiting any of the following symptoms?: Yes Symptoms: Vomiting/Diarrhea Close contact with a COVID-19 positive Pt in past 14-21 Days: No - Vaccine Status Have you recieved a Covid-19 vaccination: Yes [employer]: [employer] - Vaccination Dates Date of 2cond Vaccination (if applicable): October 2020 Comment: booster jul 2021 - Review of Systems Constitutional: No Symptoms, No Fever, No Chills Eyes: No Symptoms Ears, Nose, & Throat: No Symptoms Respiratory: No Symptoms, No Cough, No Dyspnea Cardiac: No Symptoms, No Chest Pain, No Edema, No Syncope Abdominal/Gastrointestinal: No Symptoms, No Abdominal Pain, No Nausea, No Vomit ing, No Diarrhea Genitourinary Symptoms: No Symptoms, No Dysuria Musculoskeletal: No Symptoms, No Back Pain, No Neck Pain Skin: No Symptoms, No Rash Neurological: No Symptoms, No Dizziness, No Focal Weakness, No Sensory Changes Psychological: No Symptoms Endocrine: No Symptoms Hematologic/Lymphatic: No Symptoms Immunological/Allergic: No Symptoms All Other Systems: Reviewed and Negative - Past Medical History Pertinent Past Medical History: Yes Neurological History: Peripheral Neuropathy ENT History: No Pertinent History Cardiac History: No Pertinent History Respiratory History: COPD, Sleep Apnea Endocrine Medical History: Hypothyroidism Musculoskeletal History: Fractures, Osteoarthritis GI Medical History: GERD History: No Pertinent History Psycho-Social History: Anxiety Female Reproductive Disorders: No Pertinent History Other Medical History: PMHX: GERD, THYROIDECTOMY, CHOLECYSTECTOMY, RIGHT ROTATOR CUFF REPAIR 2006, OSTEOPENIA. - Past Surgical History Past Surgical History: Yes Neuro Surgical History: No Pertinent History Cardiac: No Pertinent History Respiratory: No Pertinent History Gastrointestinal: Cholecystectomy Genitourinary: No Pertinent History Musculoskeletal: Orthopedic Surgery Female Surgical History: Section Other Surgical History: Rotator cuff repair, r knee. colonoscopy - Social History Smoking Status: Former smoker How long have you smoked: 25 years Exposure to second hand smoke: No Drug Use: none Patient Lives Alone: No Significant Family History: no pertinent family hx - Nursing Vital Signs Nursing Vital Signs: Initial Vital Signs Temperature 98.3 F 11/05/22 18:19 Pulse Rate 87 11/05/22 18:19 Blood Pressure 112/86 11/05/22 18:19 O2 Sat by Pulse Oximetry 92 L 11/05/22 18:19 Pain Scale Pain Intensity 2 - Physical Exam General Appearance: no apparent distress, alert Eye Exam: PERRL/EOMI, eyes nml inspection Ears, Nose, Throat Exam: normal ENT inspection, TMs normal, pharynx normal, moist mucous membranes Neck Exam: normal inspection, non-tender, supple, full range of motion Respiratory Exam: normal breath sounds, lungs clear, airway intact, No respiratory distress Cardiovascular Exam: regular rate/rhythm, normal heart sounds, normal peripheral pulses Gastrointestinal/Abdomen Exam: soft, normal bowel sounds, tenderness, other (Tenderness to palpation epigastrium right abdomen. Overlying soft tissue intact and outside travel.), No mass Back Exam: normal inspection, normal range of motion, No CVA tenderness, No vertebral tenderness Extremity Exam: normal inspection, normal range of motion, pelvis stable Neurologic Exam: alert, oriented x 3, cooperative, normal mood/affect, nml cerebellar function, nml station & gait, sensation nml, No motor deficits Skin Exam: normal color, warm, dry, No rash Lymphatic Exam: No adenopathy SpO2 Interpretation: normal SpO2: 92 O2 Delivery: Room Air - Course Nursing assessment & vital signs reviewed: Yes - CT Exams Abdomen/Pelvis CT Interpretation: Tele-radiologist Report (No comp. Abnormal appendix prominence up to 1.1 cm with periappendiceal stranding favors acute appendicitis. No free fluid/air. Incidental small hiatal hernia. 2 cm left adrenal adenoma. Sigmoid diverticulosis) Ordered Tests: Active Orders 24 hr Category Date Time Status IV Insertion STAT Care 11/05/22 18:42 Active ABDOMEN AND PELVIS W/0 CONTRAS [CT] Stat Exams 11/05/22 18:43 Taken CBC W DIFF Stat Lab 11/05/22 18:10 Completed CMP Stat Lab 11/05/22 18:10 Completed CULTURE,URINE Stat Lab 11/05/22 18:47 Received LIPASE Stat Lab 11/05/22 18:10 Completed TROPONIN Q4H Lab 11/05/22 18:10 Completed TROPONIN Q4H Lab 11/05/22 22:45 Ordered TROPONIN Q4H Lab 11/06/22 02:45 Ordered UA W/RFX UR CULTURE Stat Lab 11/05/22 18:47 Completed Medication Summary Generic Name Dose Route Start Last Admin Trade Name Freq PRN Reason Stop Dose Admin Sodium Chloride 1,000 mls @ 100 mls/hr 11/05/22 18:45 11/05/22 18:59 Sodium Chloride 0.9% 1000 Ml IV 12/05/22 18:44 100 mls/hr .Q10H EKATERINA Administration Ceftriaxone Sodium/Dextrose 1 g in 50 mls @ 100 mls/hr 11/05/22 19:49 11/05/22 19:55 Rocephin 1 Gm-D5w 50 Ml Bag IV 11/05/22 20:18 Not Given STAT STA Piperacillin Sod/Tazobactam 100 mls @ 200 mls/hr 11/05/22 19:51 11/05/22 19:55 Sod 3.375 gm/ Sodium Chloride IV 11/05/22 20:20 200 mls/hr STAT ONE Administration Discontinued Medications Generic Name Dose Route Start Last Admin Trade Name Freq PRN Reason Stop Dose Admin Sodium Chloride Confirm 11/05/22 19:52 Sodium Chloride 100ml Mini-Bag Plus Administered 11/05/22 19:53 Dose 100 mls @ ud IV .STK-MED ONE Morphine Sulfate 2 mg 11/05/22 18:42 11/05/22 18:59 Morphine Sulfate 2 Mg/Ml Inj IV 11/05/22 18:43 2 mg STAT ONE Administration Morphine Sulfate Confirm 11/05/22 18:48 Morphine Sulfate 2 Mg/Ml Inj Administered 11/05/22 18:49 Dose 2 mg .ROUTE .STK-MED ONE Ondansetron HCl 4 mg 11/05/22 18:42 11/05/22 18:59 Ondansetron Hcl 4 Mg/2 Ml Vial IV 11/05/22 18:43 4 mg STAT ONE Administration Ondansetron HCl Confirm 11/05/22 18:48 Ondansetron Hcl 4 Mg/2 Ml Vial Administered 11/05/22 18:49 Dose 4 mg .ROUTE .STK-MED ONE Piperacillin Sod/Tazobactam Sod Confirm 11/05/22 19:52 Piperacillin/Tazobactam Sodium 3.375 Gm Vial Administered 11/05/22 19:53 Dose 3.375 gm IV .STK-MED ONE Lab/Rad Data: Laboratory Result Diagrams 11/05/22 18:10 11/05/22 18:10 Laboratory Results 11/05/22 11/05/22 11/05/22 Range/Units 18:47 18:10 18:10 WBC (4.0-10.5) x10^3/uL RBC (4.1-5.4) x10^6/uL Hgb (12.0-16.0) g/dL Hct (35-47) % MCV (78-100) fL MCH (26-32) pg MCHC (32-36) g/dL RDW (11.5-14.0) % Plt Count (150-450) x10^3/uL MPV (7.5-11.0) fL Gran % (36.0-66.0) % Immature Gran % (Auto) (0.00-0.4) % Nucleat RBC Rel Count (0.00-0.1) % Eos # (Auto) (0-0.5) x10^3/uL Immature Gran # (Auto) (0.00-0.03) x10^3u/L Absolute Lymphs (auto) (1.0-4.6) x10^3/uL Absolute Monos (auto) (0.0-1.3) x10^3/uL Absolute Nucleated RBC (0.00-0.01) x10^3u/L Lymphocytes % (24.0-44.0) % Monocytes % (0.0-12.0) % Eosinophils % (0.00-5.0) % Basophils % (0.0-0.4) % Absolute Granulocytes (1.4-6.9) x10^3/uL Basophils # (0-0.4) x10^3/uL Sodium 138 (137-145) mmol/L Potassium 3.9 (3.5-5.1) mmol/L Chloride 100 (98-107) mmol/L Carbon Dioxide 28 (22-30) mmol/L Anion Gap 13.3 (5-15) MEQ/L BUN 21 H (7-17) mg/dL Creatinine 0.77 (0.52-1.04) mg/dL Estimated GFR > 60.0 ML/MIN Glucose 119 H (74-106) mg/dL Calcium 7.8 L (8.4-10.2) mg/dL Total Bilirubin 0.80 (0.2-1.3) mg/dL AST 21 (14-36) U/L ALT 20 (0-35) U/L Alkaline Phosphatase 80 (38-126) U/L Troponin I < 0.012 (0.000-0.034) ng/mL Serum Total Protein 7.7 (6.3-8.2) g/dL Albumin 4.5 (3.5-5.0) g/dL Lipase 218 (23-300) U/L Urine Color Yellow (Yellow) Urine Appearance Cloudy A (Clear) Urine pH 7.5 (4.6-8.0) Ur Specific [place] 1.020 (1.005-1.030) Urine Protein Trace A (Negative) Urine Glucose (UA) Negative (Negative) mg/dL Urine Ketones Negative (Negative) Urine Blood Negative (Negative) Urine Nitrite Negative (Negative) Urine Bilirubin Negative (Negative) Urine Urobilinogen 0.2 (0.2) mg/dL Ur Leukocyte Esterase Large A (Negative) U Hyaline Cast (Auto) NONE SEEN (0-2) /LPF Urine Microscopic RBC 0-2 (0-5) /HPF Urine Microscopic WBC >100 A (0-5) /HPF Ur Epithelial Cells Rare (None Seen) /HPF Urine Bacteria Rare A (None Seen) /HPF Urine Culture Reflexed YES (NO) 11/05/22 Range/Units 18:10 WBC 19.1 H (4.0-10.5) x10^3/uL RBC 4.61 (4.1-5.4) x10^6/uL Hgb 10.6 L (12.0-16.0) g/dL Hct 36.0 (35-47) % MCV 78.1 (78-100) fL MCH 23.0 L (26-32) pg MCHC 29.4 L (32-36) g/dL RDW 18.0 H (11.5-14.0) % Plt Count 680 H (150-450) x10^3/uL MPV 9.8 (7.5-11.0) fL Gran % 82.5 H (36.0-66.0) % Immature Gran % (Auto) 0.6 H (0.00-0.4) % Nucleat RBC Rel Count 0.0 (0.00-0.1) % Eos # (Auto) 0.01 (0-0.5) x10^3/uL Immature Gran # (Auto) 0.11 H (0.00-0.03) x10^3u/L Absolute Lymphs (auto) 1.99 (1.0-4.6) x10^3/uL Absolute Monos (auto) 1.19 (0.0-1.3) x10^3/uL Absolute Nucleated RBC 0.00 (0.00-0.01) x10^3u/L Lymphocytes % 10.4 L (24.0-44.0) % Monocytes % 6.2 (0.0-12.0) % Eosinophils % 0.1 (0.00-5.0) % Basophils % 0.2 (0.0-0.4) % Absolute Granulocytes 15.77 H (1.4-6.9) x10^3/uL Basophils # 0.04 (0-0.4) x10^3/uL Sodium (137-145) mmol/L Potassium (3.5-5.1) mmol/L Chloride (98-107) mmol/L Carbon Dioxide (22-30) mmol/L Anion Gap (5-15) MEQ/L BUN (7-17) mg/dL Creatinine (0.52-1.04) mg/dL Estimated GFR ML/MIN Glucose (74-106) mg/dL Calcium (8.4-10.2) mg/dL Total Bilirubin (0.2-1.3) mg/dL AST (14-36) U/L ALT (0-35) U/L Alkaline Phosphatase (38-126) U/L Troponin I (0.000-0.034) ng/mL Serum Total Protein (6.3-8.2) g/dL Albumin (3.5-5.0) g/dL Lipase (23-300) U/L Urine Color (Yellow) Urine Appearance (Clear) Urine pH (4.6-8.0) Ur Specific [place] (1.005-1.030) Urine Protein (Negative) Urine Glucose (UA) (Negative) mg/dL Urine Ketones (Negative) Urine Blood (Negative) Urine Nitrite (Negative) Urine Bilirubin (Negative) Urine Urobilinogen (0.2) mg/dL Ur Leukocyte Esterase (Negative) U Hyaline Cast (Auto) (0-2) /LPF Urine Microscopic RBC (0-5) /HPF Urine Microscopic WBC (0-5) /HPF Ur Epithelial Cells (None Seen) /HPF Urine Bacteria (None Seen) /HPF Urine Culture Reflexed (NO) - Progress Progress: improved Progress Note: Patient 72-year-old female presents emergency department with 1 day history of abdominal pain. Physical exam reveals tenderness to palpation at the right abdomen into the right lower quadrant and epigastrium. CT scan reveals acute appendicitis. Labs ordered include CBC CMP COVID test lipase troponin urinalysis. Work-up reveals a leukocytosis of 19,000. Patient received Zosyn antibiotic. Patient currently NPO. Patient received IV fluids and Zofran for nausea. Case discussed with Dr. Mascorro on-call surgeon who advises admission to medical service. Patient will be taken to the OR tonight for appendectomy. Case discussed with Dr. Man our on-call hospitalist accepts admission to observation. Plan of care discussed with patient. She agrees admission is on [facility] for further evaluation and treatment. Portions of this note were created with voice recognition technology. There may be grammatical, spelling, punctuation or sound alike errors Complexity of problems addressed is moderate. New diagnosis with uncertain prognosis. Complexity of data reviewed and analyzed is moderate. Test ordered. Test reviewed. Patient served as an independent historian. Discussion of the test interpretation and or management with another provider was performed. Risk of complication and/or morbidity/mortality of patient management is high. Patient received IV controlled medications. Patient required monitoring. Patient will be hospitalized. Patient will be admitted to our hospital and will have surgical procedure performed this evening. Plan of care discussed with patient. She agrees to admission at [facility] for further evaluation and treatment. Portions of this note were created with voice recognition technology. There may be grammatical, spelling, punctuation or sound alike errors 11/05/22 20:[address] Other (Donovan, hospitalist) Will see patient in: hospital (observation) Counseled pt/family regarding: lab results, diagnosis, rad results - Departure Departure Disposition: Observation Clinical Impression: Acute appendicitis, Leukocytosis, Thrombocytosis, Adrenal adenoma, Hiatal hernia, Sigmoid diverticulosis Condition: Stable Critical Care Time: No Referrals: DUONG YAN NP [Primary Care Provider] - Follow up/PCP as directed
[2022-11-05] MEDS: Sodium Chloride 0.9% 1000 ML 1,000 ML IV SCH (18:59)
[2022-11-05 19:11] LABS: ALBUMIN 4.5 g/dL (3.5-5.0); ALKALINE PHOSPHATASE 80 U/L (38-126); ANION GAP 13.3 MEQ/L (5-15); BLOOD UREA NITROGEN 21 mg/dL (7-17); CHLORIDE 100 mmol/L (98-107); Calcium 7.8 mg/dL (8.4-10.2); Carbon Dioxide 28 mmol/L (22-30); Creatinine 1 0.77 mg/dL (0.52-1.04); EST GLOMERULAR FILTRATION RATE > 60.0 ML/MIN; Glucose 119 mg/dL (74-106); LIPASE 218 U/L (23-300); Potassium 3.9 mmol/L (3.5-5.1); SGOT/AST 21 U/L (14-36); SGPT/ALT 20 U/L (0-35); SODIUM 138 mmol/L (137-145); Total Protein 7.7 g/dL (6.3-8.2)
[2022-11-05 19:12] LABS: Appearance Cloudy (Clear); Bacteria Rare /HPF (None Seen); Bilirubin Negative (Negative); Blood Negative (Negative); Epithelial Cells Rare /HPF (None Seen); Glucose, Urine Negative (Negative); Hyaline Casts NONE SEEN /LPF (0-2); Ketones Negative (Negative); Leukocyte Esterase Large (Negative); Nitrite Negative (Negative); Ph 7.5 (4.6-8.0); Protein,Urine Dip Trace (Negative); RBC 0-2 /HPF (0-5); Urobilinogen 0.2 mg/dL (0.2); WBC >100 /HPF (0-5)
[2022-11-05 19:13] LABS: ADD URINE CULTURE? YES (NO)
[2022-11-05 19:13] LABS: Absolute Neutrophil Ct (ANC) 15.77 x10^3/uL (1.4-6.9); BASOPHIL % 0.2 % (0.0-0.4); Basophil (Absolute #) 0.04 x10^3/uL (0-0.4); Eosinophil % 0.1 % (0.00-5.0); Eosinophil (Absolute #) 0.01 x10^3/uL (0-0.5); Hemoglobin 10.6 g/dL (12.0-16.0); IMMATURE GRAN # 0.11 x10^3u/L (0.00-0.03); IMMATURE GRAN % 0.6 % (0.00-0.4); Lymphocyte (Absolute #) 1.99 x10^3/uL (1.0-4.6); Lymphocytes % 10.4 % (24.0-44.0); Mean Cell Volume 78.1 fL (78-100); Mean Corpuscular Hgb Concent. 29.4 g/dL (32-36); Mean Platelet Volume 9.8 fL (7.5-11.0); Monocyte (Absolute #) 1.19 x10^3/uL (0.0-1.3); Monocytes % 6.2 % (0.0-12.0); Neutrophil % 82.5 % (36.0-66.0); Platelet Count 680 x10^3/uL (150-450); Red Blood Count 4.61 x10^6/uL (4.1-5.4); White Blood Count 19.1 x10^3/uL (4.0-10.5)
[2022-11-05] MEDS ORDERED: ROCEPHIN 1 Gm-D5w 50 ml Bag** 1 G/50 ML IVPB IV STA (19:49)
[2022-11-05] MEDS ORDERED: PIPERACILLIN/TAZOBACTAM 3.375 GM in Sodium Chloride 100ML MINI-BAG PLUS 100 ML IV ONE (19:51)
[2022-11-05] MEDS ORDERED: PIPERACILLIN/TAZOBACTAM IV ONE (19:52)
[2022-11-05] MEDS ORDERED: Sodium Chloride 100ML MINI-BAG PLUS 100 ML IV ONE (19:52)
[2022-11-05] MEDS ORDERED: Sensorcaine 0.25% 10 ML ONE (20:30)
[2022-11-05] MEDS ORDERED: Lactated Ringers 1,000 ML IV ONE ×2 (20:30→20:43)
[2022-11-05] MEDS ORDERED: TORAdol 30 mg Injection ONE (20:43)
[2022-11-05] MEDS ORDERED: BRIDION 200MG/2ML IV ONE (20:43)
[2022-11-05] MEDS ORDERED: OFIRMEV 100 ML IV ONE (20:43)
[2022-11-05] MEDS ORDERED: Zemuron 100 MG/10 ML ONE (20:43)
[2022-11-05] MEDS ORDERED: Magnesium Sulfate 1 GM/2 ML VIAL ONE (20:43)
[2022-11-05] MEDS ORDERED: Decadron 4 MG INJ ONE (20:43)
[2022-11-05] MEDS ORDERED: Xylocaine-Mpf 2% 5 Ml Vial ONE (20:43)
[2022-11-05] MEDS ORDERED: SUBLIMAZE 100 MCG/2 ML ONE (20:44)
[2022-11-05] MEDS ORDERED: DIPRIVAN 200 MG/20 ML IV ONE (20:44)
[2022-11-05 20:46] LABS: INFLUENZA A NEGATIVE (NEGATIVE); INFLUENZA B NEGATIVE (NEGATIVE); RESPIRATORY SYNCTIAL VIRUS NEGATIVE (Negative); SARS-CoV-2 Xpert Express NEGATIVE (NEGATIVE)
[2022-11-05] MEDS ORDERED: Ketamine HCl 50 MG/ML ONE (20:56)
[2022-11-05] MEDS ORDERED: ULTRAM 50 MG PO PRN (22:45)
[2022-11-05] MEDS ORDERED: Zofran 4 MG/2 ML VIAL IV PRN (22:47)
[2022-11-05] MEDS ORDERED: VENTOLIN COMMON CANISTER IH PRN (22:53)
[2022-11-05] MEDS ORDERED: PROVENTIL 2.5 MG/3 ML NEB IH PRN (22:54)
--- NOTE | 2022-11-05 23:30 | PCM.HP ---
History of Present Illness - Chief Complaint Chief Complaint: Acute appendicitis, leukocytosis History of Present Illness: is a 72 year old female. 72 yo wf with hx of COPD, Chronic anemia(microcytic) presents with acute onset of abd pain. MEQ radiating to RLQ. In ED: CT showed appendicitis. She went for urgent laparoscopic appendectomy. She is stable. - Review of Systems Constitutional: No Symptoms Eyes: No Symptoms Ears, Nose, & Throat: No Symptoms Respiratory: No Symptoms Cardiac: No Symptoms Abdominal/Gastrointestinal: Abdominal Pain, Nausea, Vomiting Genitourinary Symptoms: No Symptoms Musculoskeletal: No Symptoms Skin: No Symptoms Neurological: No Symptoms Psychological: No Symptoms Endocrine: No Symptoms Hematologic/Lymphatic: No Symptoms Medications & Allergies Home Medications: Home Medication List Levothyroxine Sodium 137 mcg PO DAILY 02/04/18 [History Confirmed 11/05/22] Omeprazole 20 MG [Prilosec 20 mg] 20 mg PO BID 02/04/18 [History Confirmed 11/05/22] Escitalopram Oxalate [Lexapro] 10 mg PO HS 05/14/21 [History Confirmed 11/05/22] Gabapentin [Neurontin ] 400 mg PO BID 05/14/21 [History Confirmed 11/05/22] Ropinirole HCl 2 mg PO HS 05/14/21 [History Confirmed 11/05/22] Budesonide/Formoterol Fumarate [Symbicort 160-4.5 Mcg Inhaler] 0 gm IH BID 05/24/21 [History Confirmed 11/05/22] Albuterol Sulfate [Albuterol Sulfate Hfa] 8.5 gm IH Q4HPRN PRN 07/30/22 [History Confirmed 11/05/22] Celecoxib 100 mg [celeBREX 100 MG] 200 mg PO DAILY 07/30/22 [History Confirmed 11/05/22] Hydrocodone/Acetaminophen [Hydrocodone-Acetamin 5-325 mg] 1 tab PO Q4HPRN PRN MDD 6 11/05/22 [History Confirmed 11/05/22] Tiotropium [place] [Spiriva Respimat] 0 gm IH UD 11/05/22 [History Confirmed 11/05/22] Allergies/Adverse Reactions: Allergies Allergy/AdvReac Type Severity Reaction Status Date / Time No Known Drug Allergies Allergy Verified 11/05/22 18:16 - Past Medical History Past Medical History: Yes Neurological History: Peripheral Neuropathy ENT History: No Pertinent History Cardiac History: No Pertinent History Respiratory History: COPD, Sleep Apnea Endocrine Medical History: Hypothyroidism Musculoskelatal History: Fractures, Osteoarthritis GI Medical History: GERD History: No Pertinent History Pyscho-Social History: Anxiety Reproductive Disorders: No Pertinent History Comment: PMHX: GERD, THYROIDECTOMY, CHOLECYSTECTOMY, RIGHT ROTATOR CUFF REPAIR 2006, OSTEOPENIA. - Past Surgical History Past Surgical History: Yes Neuro Surgical History: No Pertinent History Cardiac History: No Pertinent History Respiratory Surgery: No Pertinent History GI Surgical History: Cholecystectomy Genitourinary Surgical Hx: No Pertinent History Musculskeletal Surgical Hx: Orthopedic Surgery Female Surgical History: Section Other Surgical History: Rotator cuff repair, r knee. colonoscopy - Social History Smoking Status: Former smoker How long have you smoked: 25 years Exposure to second hand smoke: No Alcohol: None Drug Use: none Significant Family History: no pertinent family hx - Physical Exam Vital Signs: Vital Signs - 24 hr Temp Pulse Resp BP Pulse Ox 11/05/22 22:45 78 17 93 L 11/05/22 20:40 98.8 F 77 20 123/55 96 11/05/22 20:28 98.8 F 77 20 123/55 96 11/05/22 20:26 92 L 11/05/22 20:01 90 115/65 96 11/05/22 19:31 93 H 112/86 92 L 11/05/22 18:19 98.3 F 87 112/86 92 L General Appearance: no apparent distress Neurologic Exam: alert, oriented x 3 Eye Exam: PERRL/EOMI, eyes nml inspection Ears, Nose, Throat Exam: normal ENT inspection Neck Exam: normal inspection Respiratory Exam: normal breath sounds Cardiovascular Exam: regular rate/rhythm Gastrointestinal/Abdomen Exam: soft, No normal bowel sounds, No tenderness, No distention Extremity Exam: normal inspection, normal range of motion Skin Exam: normal color Results - Labs Lab/Micro Results: Lab Results-Last 24 Hours 11/05/22 11/05/22 11/05/22 Range/Units 18:10 18:10 18:10 WBC 19.1 H (4.0-10.5) x10^3/uL RBC 4.61 (4.1-5.4) x10^6/uL Hgb 10.6 L (12.0-16.0) g/dL Hct 36.0 (35-47) % MCV 78.1 (78-100) fL MCH 23.0 L (26-32) pg MCHC 29.4 L (32-36) g/dL RDW 18.0 H (11.5-14.0) % Plt Count 680 H (150-450) x10^3/uL MPV 9.8 (7.5-11.0) fL Gran % 82.5 H (36.0-66.0) % Immature Gran % (Auto) 0.6 H (0.00-0.4) % Nucleat RBC Rel Count 0.0 (0.00-0.1) % Eos # (Auto) 0.01 (0-0.5) x10^3/uL Immature Gran # (Auto) 0.11 H (0.00-0.03) x10^3u/L Absolute Lymphs (auto) 1.99 (1.0-4.6) x10^3/uL Absolute Monos (auto) 1.19 (0.0-1.3) x10^3/uL Absolute Nucleated RBC 0.00 (0.00-0.01) x10^3u/L Lymphocytes % 10.4 L (24.0-44.0) % Monocytes % 6.2 (0.0-12.0) % Eosinophils % 0.1 (0.00-5.0) % Basophils % 0.2 (0.0-0.4) % Absolute Granulocytes 15.77 H (1.4-6.9) x10^3/uL Basophils # 0.04 (0-0.4) x10^3/uL Sodium 138 (137-145) mmol/L Potassium 3.9 (3.5-5.1) mmol/L Chloride 100 (98-107) mmol/L Carbon Dioxide 28 (22-30) mmol/L Anion Gap 13.3 (5-15) MEQ/L BUN 21 H (7-17) mg/dL Creatinine 0.77 (0.52-1.04) mg/dL Estimated GFR > 60.0 ML/MIN Glucose 119 H (74-106) mg/dL Calcium 7.8 L (8.4-10.2) mg/dL Total Bilirubin 0.80 (0.2-1.3) mg/dL AST 21 (14-36) U/L ALT 20 (0-35) U/L Alkaline Phosphatase 80 (38-126) U/L Troponin I < 0.012 (0.000-0.034) ng/mL Serum Total Protein 7.7 (6.3-8.2) g/dL Albumin 4.5 (3.5-5.0) g/dL Lipase 218 (23-300) U/L Urine Color (Yellow) Urine Appearance (Clear) Urine pH (4.6-8.0) Ur Specific [place] (1.005-1.030) Urine Protein (Negative) Urine Glucose (UA) (Negative) mg/dL Urine Ketones (Negative) Urine Blood (Negative) Urine Nitrite (Negative) Urine Bilirubin (Negative) Urine Urobilinogen (0.2) mg/dL Ur Leukocyte Esterase (Negative) U Hyaline Cast (Auto) (0-2) /LPF Urine Microscopic RBC (0-5) /HPF Urine Microscopic WBC (0-5) /HPF Ur Epithelial Cells (None Seen) /HPF Urine Bacteria (None Seen) /HPF Urine Culture Reflexed (NO) Influenza Type A Ag (NEGATIVE) Influenza Type B Ag (NEGATIVE) RSV (PCR) (Negative) SARS-CoV-2 (PCR) (NEGATIVE) 11/05/22 11/05/22 Range/Units 18:47 20:00 WBC (4.0-10.5) x10^3/uL RBC (4.1-5.4) x10^6/uL Hgb (12.0-16.0) g/dL Hct (35-47) % MCV (78-100) fL MCH (26-32) pg MCHC (32-36) g/dL RDW (11.5-14.0) % Plt Count (150-450) x10^3/uL MPV (7.5-11.0) fL Gran % (36.0-66.0) % Immature Gran % (Auto) (0.00-0.4) % Nucleat RBC Rel Count (0.00-0.1) % Eos # (Auto) (0-0.5) x10^3/uL Immature Gran # (Auto) (0.00-0.03) x10^3u/L Absolute Lymphs (auto) (1.0-4.6) x10^3/uL Absolute Monos (auto) (0.0-1.3) x10^3/uL Absolute Nucleated RBC (0.00-0.01) x10^3u/L Lymphocytes % (24.0-44.0) % Monocytes % (0.0-12.0) % Eosinophils % (0.00-5.0) % Basophils % (0.0-0.4) % Absolute Granulocytes (1.4-6.9) x10^3/uL Basophils # (0-0.4) x10^3/uL Sodium (137-145) mmol/L Potassium (3.5-5.1) mmol/L Chloride (98-107) mmol/L Carbon Dioxide (22-30) mmol/L Anion Gap (5-15) MEQ/L BUN (7-17) mg/dL Creatinine (0.52-1.04) mg/dL Estimated GFR ML/MIN Glucose (74-106) mg/dL Calcium (8.4-10.2) mg/dL Total Bilirubin (0.2-1.3) mg/dL AST (14-36) U/L ALT (0-35) U/L Alkaline Phosphatase (38-126) U/L Troponin I (0.000-0.034) ng/mL Serum Total Protein (6.3-8.2) g/dL Albumin (3.5-5.0) g/dL Lipase (23-300) U/L Urine Color Yellow (Yellow) Urine Appearance Cloudy A (Clear) Urine pH 7.5 (4.6-8.0) Ur Specific [place] 1.020 (1.005-1.030) Urine Protein Trace A (Negative) Urine Glucose (UA) Negative (Negative) mg/dL Urine Ketones Negative (Negative) Urine Blood Negative (Negative) Urine Nitrite Negative (Negative) Urine Bilirubin Negative (Negative) Urine Urobilinogen 0.2 (0.2) mg/dL Ur Leukocyte Esterase Large A (Negative) U Hyaline Cast (Auto) NONE SEEN (0-2) /LPF Urine Microscopic RBC 0-2 (0-5) /HPF Urine Microscopic WBC >100 A (0-5) /HPF Ur Epithelial Cells Rare (None Seen) /HPF Urine Bacteria Rare A (None Seen) /HPF Urine Culture Reflexed YES (NO) Influenza Type A Ag NEGATIVE (NEGATIVE) Influenza Type B Ag NEGATIVE (NEGATIVE) RSV (PCR) NEGATIVE (Negative) SARS-CoV-2 (PCR) NEGATIVE (NEGATIVE) - Radiology Impressions Radiology Exams & Impressions: Radiology Procedures Category Date Time Status ABDOMEN AND PELVIS W/0 CONTRAS [CT] Stat Exams 11/05/22 18:43 Taken - Other Procedures and Tests Respiratory Therapy 11/05/22 22:33 Incentive Spirometry TID Respiratory Therapy Assessment DAILY 11/05/22 22:55 Oxygen NASAL CANNULA 2.5 lpm Assessment/Plan (1) Acute appendicitis Current Visit: Yes Status: Acute Assessment & Plan: 1. Appendicitis: s/p appendectomy. POD #0. Continue IVFs and pain control. Also on Zosyn 2. ? UTI: Await culture. Continue zosyn 3. COPD: not in exac. Continue spiriva and symbicort. 4. Hypothyroidism: continue synthroid. Check TFTs 5. FEN: defer to surgery. IVFs tonight. 6. PX: SCDs Ousmane Man MD entire encounter done via telemedicine Code(s): K35.80 - UNSPECIFIED ACUTE APPENDICITIS Telemedicine Encounter - Telemedicine Encounter Telemedicine Encounter: The entirety of this encounter was performed via Telemedicine"
[2022-11-06] MEDS ORDERED: Sodium Chloride 100ML MINI-BAG PLUS 100 ML IV ONE ×2 (01:05→06:06)
[2022-11-06] MEDS ORDERED: PIPERACILLIN/TAZOBACTAM IV ONE ×2 (01:05→06:04)
[2022-11-06] MEDS: MORPHINE SULFATE 4 MG INJ IV PRN ×3 (01:22→10:30)
[2022-11-06] MEDS: PIPERACILLIN/TAZOBACTAM 3.375 GM in Sodium Chloride 100ML MINI-BAG PLUS 100 ML IV SCH ×5 (01:23→22:08)
[2022-11-06] MEDS: Sodium Chloride 0.9% 1000 ML 1,000 ML IV SCH ×2 (01:23→15:27)
[2022-11-06] MEDS: Advair Hfa 230/21 Mcg COMMON CANISTER IH SCH ×2 (04:51→18:46)
[2022-11-06] MEDS: Spiriva 18 Mcg/Cap Inhaler IH SCH (04:52)
[2022-11-06 05:21] LABS: Hematocrit 31.5 % (35-47); Mean Cell Volume 80.6 fL (78-100); Mean Corpuscular Hgb Concent. 28.6 g/dL (32-36); Mean Platelet Volume 9.9 fL (7.5-11.0); Platelet Count 522 x10^3/uL (150-450); Red Blood Count 3.91 x10^6/uL (4.1-5.4); Red Cell Distribution Width 18.1 % (11.5-14.0); White Blood Count 16.5 x10^3/uL (4.0-10.5)
[2022-11-06 06:28] LABS: ANION GAP 10.6 MEQ/L (5-15); BLOOD UREA NITROGEN 19 mg/dL (7-17); CHLORIDE 105 mmol/L (98-107); Calcium 6.9 mg/dL (8.4-10.2); Carbon Dioxide 28 mmol/L (22-30); Creatinine 1 0.93 mg/dL (0.52-1.04); EST GLOMERULAR FILTRATION RATE > 60.0 ML/MIN; Glucose 152 mg/dL (74-106); Potassium 4.6 mmol/L (3.5-5.1); SODIUM 139 mmol/L (137-145)
[2022-11-06] MEDS ORDERED: SYNTHROID 125 MCG PO SCH (07:00)
--- NOTE | 2022-11-06 08:51 | XRAY ---
Indication: Abdomen pain and bloating. Nausea and vomiting. Multiple contiguous axial images obtained through the abdomen and pelvis without contrast. Comparison: None Lung bases demonstrates pulmonary emphysema with scattered fibrosis/scarring. No infiltrate or effusion. Heart not enlarged. Small hiatal hernia. Noncontrasted stomach and bowel loops appear nonobstructed. Small descending duodenal diverticulum. Appendix is prominent up to 1.1 cm with periappendiceal stranding favoring acute appendicitis. No free fluid/air. Scattered sigmoid diverticulosis without diverticulitis. Incidental 2 cm left adrenal adenoma and cholecystectomy. Remaining liver, pancreas, spleen, adrenal glands, kidneys, ureters, bladder, and uterus are unremarkable for noncontrast exam. Mild scattered aortoiliac calcifications without AAA. Osseous structures intact with osteopenia, mild/moderate degenerative changes throughout the thoracolumbar spine, moderate levorotoscoliosis centered at L4, and mild degenerative changes both hips. Impression: 1. CT findings favoring acute appendicitis. No complications. 2. Chronic findings including pulmonary emphysema, small hiatal hernia, descending duodenal diverticulum, sigmoid diverticulosis, left adrenal adenoma, arteriosclerotic disease, and chronic bony findings.
[2022-11-06] MEDS: Neurontin PO SCH ×2 (09:27→22:08)
[2022-11-06] MEDS ORDERED: Protonix 40MG Tablet PO SCH (10:00)
--- NOTE | 2022-11-06 10:31 | CONS ---
CONSULT DATE: 11/05/2022 HISTORY: A 72-year-old female with history of pain initially a little more generalized in the right lower quadrant. She had little stools. She denies any fever. PAST MEDICAL HISTORY: History of ulcers when she was young. She had some anemia, chronic obstructive pulmonary disease, sleep apnea, hypothyroidism, osteoarthritis, neuropathy, anxiety. PAST SURGICAL HISTORY: Thyroidectomy. Cholecystectomy. Right rotator cuff repair. Knee replacement recently. She had colonoscopy in the past. HOME MEDICATIONS: Albuterol, Symbicort, Celebrex, hydrocodone/aspirin, Spiriva Respimat, omeprazole, ropinirole, levothyroxine, Lexapro, gabapentin. ALLERGIES: NKDA. FAMILY HISTORY: Negative in regards to this specific problem. SOCIAL HISTORY: Denies alcohol abuse. REVIEW OF SYSTEMS: Fourteen systems reviewed. No chest pain or palpitations otherwise pertinent for as noted above, multiple medical problems noted above. PHYSICAL EXAMINATION: Blood pressure 112/86, pulse 87, temperature 98.3F earlier. GENERAL: No acute distress. HEENT: Sclera nonicteric. NECK: No JVD. CHEST: Equal excursion, nonlabored breathing. She is on nasal O2. CVS: Regular rhythm and pulse. ABDOMEN: Soft, some tenderness in right lower quadrant. She is a little overweight but soft. No peritoneal signs. EXTREMITIES: No significant edema. NEURO: Alert, moving extremities grossly symmetrically. PSYCH: Appropriate mood and affect. SKIN: Dry. LAB DATA AND TESTS: White count 19.1, hemoglobin 10.6, PLT 680,000. CT reviewed showed 1.1 cm appendix, periappendiceal stranding favoring acute appendicitis, small hiatal hernia and diverticulosis without diverticulitis. IMPRESSION: Acute right lower quadrant pain, leukocytosis, history and physical exam findings suspicious for possible acute appendicitis, other differential includes enteritis, colitis, diverticulitis, viral syndrome or other etiology. I feel she would benefit from laparoscopic appendectomy possible open. General risk of bleeding or infection, risk of trocar injury or hernia, risk of bowel, bladder, blood vessel injury, risk of subsequent intra-abdominal abscess or fistula formation possibly requiring percutaneous or open drainage even at a later date, possibility of open procedure, possibility of finding a normal appendix likely remove incidentally and look for etiology that might need taken care of surgically. General risk of anesthesia, deep vein thrombosis, pulmonary embolism or pneumonia but not limited to as well as perioperative risk of ileus or obstruction but not limited to or ongoing infection. She understands and agrees to the planned procedure, will proceed with laparoscopic appendectomy possible open when OR time available.
--- NOTE | 2022-11-06 11:05 | OP ---
SURGERY DATE/TIME: 11/05/20222053 PREOPERATIVE DIAGNOSIS: Acute right lower quadrant pain, acute appendicitis on CT scan. POSTOPERATIVE DIAGNOSIS: Acute suppurative appendicitis. PROCEDURE: Laparoscopic appendectomy. SURGEON: Dr. Quang Deluca. ANESTHESIA: General. ESTIMATED BLOOD LOSS: Minimal. INDICATIONS: As noted above. Risks and benefits explained in detail but not limited to, consent obtained. DESCRIPTION OF PROCEDURE AND FINDINGS: The patient is taken to the operating room. General anesthesia induced. Abdomen prepped and draped in the usual sterile fashion. After official time out and no disagreement with planned procedure, a transverse incision made supraumbilical area. Fascia grasped and pulled upwards. Veress needle inserted and tested with saline. Pneumoperitoneum accomplished from opening pressure of 0 to 15. A 5 mm bladeless port and camera were inserted without difficulty. A 12 mm right mid abdomen port and a 5 mm lower midline port. There were some right upper quadrant omental adhesions, was able to stay below these. There were some adhesions on the inflamed suppurative appendix in the right lower quadrant with lateral peritoneal reflection. Adhesions were released allowing the appendix and cecum to be mobilized upwards. Dissection is carried at the base with aid of LigaSure device taking the mesoappendix down carefully. Once this was accomplished, EndoGIA stapler fired across the base of the appendix to the cecum. Sequential reload fired across the small, little residual mesoappendix. Good hemostasis noted. Appendix placed in the bag, pulled free and passed off out the 12 mm port wound. The port is replaced. Copious amount of irrigation accomplished in the right lower quadrant and pelvis irrigating clear. Staple line was intact. No signs of any leakage. Mesoappendix was dry. It was felt there was no benefit in drain placement. At this point fascial defect 12 mm site closed with puncture closure device with #1 Vicryl. Pneumoperitoneum decompressed. Skin incision closed with 4-0 Vicryl. Steri-Strips and sterile dressing applied. The patient tolerated the procedure well. There were no immediate complications. The family had wandered off so will see if they are there when I get ready to leave.
[2022-11-06] MEDS: NORCO 5/325 MG PO PRN ×3 (13:52→22:14)
[2022-11-06] MEDS: celeBREX 100 MG PO SCH (15:28)
--- NOTE | 2022-11-06 17:08 | PCM.NOTE ---
Date and Time: 11/06/22 1705 Subjective Assessment: Pt up in chair and feeling better. Some pain RUQ at incision. no flatus as yet. Grover po well however. Objective Exam General Appearance: no apparent distress, obese Neurologic Exam: alert, oriented x 3, cooperative Skin Exam: warm, dry, No rash Eye Exam: eyes nml inspection Ears, Nose, Throat Exam: moist mucous membranes Neck Exam: normal inspection, non-tender Respiratory Exam: normal breath sounds, lungs clear, No crackles/rales, No rhonchi, No wheezing Cardiovascular Exam: regular rate/rhythm, normal heart sounds, No murmur Gastrointestinal/Abdomen Exam: soft, tenderness (RUQ), other (several surgical sites with dressing c/d/i- there is some bruising at R mid/upper abd site), No normal bowel sounds (hyperactive), No guarding, No rebound Extremity Exam: normal inspection, No pedal edema, No swelling Back Exam: normal inspection, No rash OBJECTIVE DATA Vital Signs: Vital Signs - 24 hr Temp Pulse Resp BP Pulse Ox 11/06/22 16:00 97.0 F 72 17 105/53 90 L 11/06/22 12:00 97.0 F 69 17 101/54 91 L 11/06/22 07:21 97.5 F 85 18 107/53 95 11/06/22 04:52 67 18 93 L 11/06/22 04:00 98.1 F 75 16 105/58 90 L 11/06/22 00:00 77 17 99/53 95 11/05/22 23:30 98.0 F 78 18 103/56 94 L 11/05/22 23:01 98.8 F 77 20 123/55 96 11/05/22 23:00 97.9 F 80 18 102/54 93 L 11/05/22 22:45 76 15 113/58 92 L 11/05/22 22:30 98.1 F 76 17 110/70 93 L 11/05/22 22:15 97.8 F 78 16 118/56 99 11/05/22 20:40 98.8 F 77 20 123/55 96 11/05/22 20:28 98.8 F 77 20 123/55 96 11/05/22 20:26 92 L 11/05/22 20:01 90 115/65 96 11/05/22 19:31 93 H 112/86 92 L 11/05/22 18:19 98.3 F 87 112/86 92 L Pain Assessment - Last Documented Pain Intensity 2 Pain Scale Used 0-10 Pain Scale Intake and Output: Intake & Output 11/04/22 11/05/22 11/06/22 11/07/22 11:59 11:59 11:59 11:59 Intake Total 961 240 Balance 961 240 Weight 96 kg Lab Results: Lab Results-Last 24 Hours 11/05/22 11/05/22 11/05/22 Range/Units 18:10 18:10 18:10 WBC 19.1 H (4.0-10.5) x10^3/uL RBC 4.61 (4.1-5.4) x10^6/uL Hgb 10.6 L (12.0-16.0) g/dL Hct 36.0 (35-47) % MCV 78.1 (78-100) fL MCH 23.0 L (26-32) pg MCHC 29.4 L (32-36) g/dL RDW 18.0 H (11.5-14.0) % Plt Count 680 H (150-450) x10^3/uL MPV 9.8 (7.5-11.0) fL Gran % 82.5 H (36.0-66.0) % Immature Gran % (Auto) 0.6 H (0.00-0.4) % Nucleat RBC Rel Count 0.0 (0.00-0.1) % Eos # (Auto) 0.01 (0-0.5) x10^3/uL Immature Gran # (Auto) 0.11 H (0.00-0.03) x10^3u/L Absolute Lymphs (auto) 1.99 (1.0-4.6) x10^3/uL Absolute Monos (auto) 1.19 (0.0-1.3) x10^3/uL Absolute Nucleated RBC 0.00 (0.00-0.01) x10^3u/L Lymphocytes % 10.4 L (24.0-44.0) % Monocytes % 6.2 (0.0-12.0) % Eosinophils % 0.1 (0.00-5.0) % Basophils % 0.2 (0.0-0.4) % Absolute Granulocytes 15.77 H (1.4-6.9) x10^3/uL Basophils # 0.04 (0-0.4) x10^3/uL Sodium 138 (137-145) mmol/L Potassium 3.9 (3.5-5.1) mmol/L Chloride 100 (98-107) mmol/L Carbon Dioxide 28 (22-30) mmol/L Anion Gap 13.3 (5-15) MEQ/L BUN 21 H (7-17) mg/dL Creatinine 0.77 (0.52-1.04) mg/dL Estimated GFR > 60.0 ML/MIN Glucose 119 H (74-106) mg/dL Calcium 7.8 L (8.4-10.2) mg/dL Total Bilirubin 0.80 (0.2-1.3) mg/dL AST 21 (14-36) U/L ALT 20 (0-35) U/L Alkaline Phosphatase 80 (38-126) U/L Troponin I < 0.012 (0.000-0.034) ng/mL Serum Total Protein 7.7 (6.3-8.2) g/dL Albumin 4.5 (3.5-5.0) g/dL Lipase 218 (23-300) U/L TSH 3rd Generation (0.47-4.68) mIU/L Urine Color (Yellow) Urine Appearance (Clear) Urine pH (4.6-8.0) Ur Specific [place] (1.005-1.030) Urine Protein (Negative) Urine Glucose (UA) (Negative) mg/dL Urine Ketones (Negative) Urine Blood (Negative) Urine Nitrite (Negative) Urine Bilirubin (Negative) Urine Urobilinogen (0.2) mg/dL Ur Leukocyte Esterase (Negative) U Hyaline Cast (Auto) (0-2) /LPF Urine Microscopic RBC (0-5) /HPF Urine Microscopic WBC (0-5) /HPF Ur Epithelial Cells (None Seen) /HPF Urine Bacteria (None Seen) /HPF Urine Culture Reflexed (NO) Influenza Type A Ag (NEGATIVE) Influenza Type B Ag (NEGATIVE) RSV (PCR) (Negative) SARS-CoV-2 (PCR) (NEGATIVE) 11/05/22 11/05/22 11/06/22 Range/Units 18:47 20:00 05:09 WBC (4.0-10.5) x10^3/uL RBC (4.1-5.4) x10^6/uL Hgb (12.0-16.0) g/dL Hct (35-47) % MCV (78-100) fL MCH (26-32) pg MCHC (32-36) g/dL RDW (11.5-14.0) % Plt Count (150-450) x10^3/uL MPV (7.5-11.0) fL Gran % (36.0-66.0) % Immature Gran % (Auto) (0.00-0.4) % Nucleat RBC Rel Count (0.00-0.1) % Eos # (Auto) (0-0.5) x10^3/uL Immature Gran # (Auto) (0.00-0.03) x10^3u/L Absolute Lymphs (auto) (1.0-4.6) x10^3/uL Absolute Monos (auto) (0.0-1.3) x10^3/uL Absolute Nucleated RBC (0.00-0.01) x10^3u/L Lymphocytes % (24.0-44.0) % Monocytes % (0.0-12.0) % Eosinophils % (0.00-5.0) % Basophils % (0.0-0.4) % Absolute Granulocytes (1.4-6.9) x10^3/uL Basophils # (0-0.4) x10^3/uL Sodium (137-145) mmol/L Potassium (3.5-5.1) mmol/L Chloride (98-107) mmol/L Carbon Dioxide (22-30) mmol/L Anion Gap (5-15) MEQ/L BUN (7-17) mg/dL Creatinine (0.52-1.04) mg/dL Estimated GFR ML/MIN Glucose (74-106) mg/dL Calcium (8.4-10.2) mg/dL Total Bilirubin (0.2-1.3) mg/dL AST (14-36) U/L ALT (0-35) U/L Alkaline Phosphatase (38-126) U/L Troponin I < 0.012 (0.000-0.034) ng/mL Serum Total Protein (6.3-8.2) g/dL Albumin (3.5-5.0) g/dL Lipase (23-300) U/L TSH 3rd Generation (0.47-4.68) mIU/L Urine Color Yellow (Yellow) Urine Appearance Cloudy A (Clear) Urine pH 7.5 (4.6-8.0) Ur Specific [place] 1.020 (1.005-1.030) Urine Protein Trace A (Negative) Urine Glucose (UA) Negative (Negative) mg/dL Urine Ketones Negative (Negative) Urine Blood Negative (Negative) Urine Nitrite Negative (Negative) Urine Bilirubin Negative (Negative) Urine Urobilinogen 0.2 (0.2) mg/dL Ur Leukocyte Esterase Large A (Negative) U Hyaline Cast (Auto) NONE SEEN (0-2) /LPF Urine Microscopic RBC 0-2 (0-5) /HPF Urine Microscopic WBC >100 A (0-5) /HPF Ur Epithelial Cells Rare (None Seen) /HPF Urine Bacteria Rare A (None Seen) /HPF Urine Culture Reflexed YES (NO) Influenza Type A Ag NEGATIVE (NEGATIVE) Influenza Type B Ag NEGATIVE (NEGATIVE) RSV (PCR) NEGATIVE (Negative) SARS-CoV-2 (PCR) NEGATIVE (NEGATIVE) 11/06/22 11/06/22 11/06/22 Range/Units 05:09 05:09 05:09 WBC 16.5 H (4.0-10.5) x10^3/uL RBC 3.91 L (4.1-5.4) x10^6/uL Hgb 9.0 L (12.0-16.0) g/dL Hct 31.5 L (35-47) % MCV 80.6 (78-100) fL MCH 23.0 L (26-32) pg MCHC 28.6 L (32-36) g/dL RDW 18.1 H (11.5-14.0) % Plt Count 522 H (150-450) x10^3/uL MPV 9.9 (7.5-11.0) fL Gran % (36.0-66.0) % Immature Gran % (Auto) (0.00-0.4) % Nucleat RBC Rel Count (0.00-0.1) % Eos # (Auto) (0-0.5) x10^3/uL Immature Gran # (Auto) (0.00-0.03) x10^3u/L Absolute Lymphs (auto) (1.0-4.6) x10^3/uL Absolute Monos (auto) (0.0-1.3) x10^3/uL Absolute Nucleated RBC (0.00-0.01) x10^3u/L Lymphocytes % (24.0-44.0) % Monocytes % (0.0-12.0) % Eosinophils % (0.00-5.0) % Basophils % (0.0-0.4) % Absolute Granulocytes (1.4-6.9) x10^3/uL Basophils # (0-0.4) x10^3/uL Sodium 139 (137-145) mmol/L Potassium 4.6 (3.5-5.1) mmol/L Chloride 105 (98-107) mmol/L Carbon Dioxide 28 (22-30) mmol/L Anion Gap 10.6 (5-15) MEQ/L BUN 19 H (7-17) mg/dL Creatinine 0.93 (0.52-1.04) mg/dL Estimated GFR > 60.0 ML/MIN Glucose 152 H (74-106) mg/dL Calcium 6.9 L (8.4-10.2) mg/dL Total Bilirubin (0.2-1.3) mg/dL AST (14-36) U/L ALT (0-35) U/L Alkaline Phosphatase (38-126) U/L Troponin I (0.000-0.034) ng/mL Serum Total Protein (6.3-8.2) g/dL Albumin (3.5-5.0) g/dL Lipase (23-300) U/L TSH 3rd Generation 2.530 (0.47-4.68) mIU/L Urine Color (Yellow) Urine Appearance (Clear) Urine pH (4.6-8.0) Ur Specific [place] (1.005-1.030) Urine Protein (Negative) Urine Glucose (UA) (Negative) mg/dL Urine Ketones (Negative) Urine Blood (Negative) Urine Nitrite (Negative) Urine Bilirubin (Negative) Urine Urobilinogen (0.2) mg/dL Ur Leukocyte Esterase (Negative) U Hyaline Cast (Auto) (0-2) /LPF Urine Microscopic RBC (0-5) /HPF Urine Microscopic WBC (0-5) /HPF Ur Epithelial Cells (None Seen) /HPF Urine Bacteria (None Seen) /HPF Urine Culture Reflexed (NO) Influenza Type A Ag (NEGATIVE) Influenza Type B Ag (NEGATIVE) RSV (PCR) (Negative) SARS-CoV-2 (PCR) (NEGATIVE) Radiology Exams: Radiology Procedures Category Date Time Status ABDOMEN AND PELVIS W/0 CONTRAS [CT] Stat Exams 11/05/22 18:43 Completed Assessment/Plan (1) S/P appendectomy Current Visit: Yes Status: Acute Assessment & Plan: POD #1, and clinically she looks great. On zosyn. Code(s): Z90.49 - ACQUIRED ABSENCE OF OTHER SPECIFIED PARTS OF DIGESTIVE TRACT (2) UTI (urinary tract infection) Current Visit: Yes Status: Acute Qualifiers: Urinary tract infection type: acute cystitis Hematuria presence: without hematuria Qualified Code(s): N30.00 - Acute cystitis without hematuria Assessment & Plan: zosyn day #2. UCx neg as yet but not final. Code(s): N39.0 - URINARY TRACT INFECTION, SITE NOT SPECIFIED (3) Microcytic anemia Current Visit: No Status: Chronic Assessment & Plan: Hgb 9.0 this morning, recheck tomorrow. Code(s): D50.9 - IRON DEFICIENCY ANEMIA, UNSPECIFIED (4) Type 2 diabetes mellitus Current Visit: No Status: Chronic
[2022-11-06] MEDS: Protonix 40MG Tablet PO SCH (22:08)
[2022-11-06] MEDS: REQUIP 2MG TAB PO SCH (22:08)
[2022-11-06] MEDS: Lexapro PO SCH (22:08)
[2022-11-07] MEDS: Sodium Chloride 0.9% 1000 ML 1,000 ML IV SCH ×2 (01:40→13:58)
[2022-11-07 04:50] LABS: Absolute Neutrophil Ct (ANC) 9.51 x10^3/uL (1.4-6.9); BASOPHIL % 0.4 % (0.0-0.4); Basophil (Absolute #) 0.05 x10^3/uL (0-0.4); Eosinophil % 0.1 % (0.00-5.0); Eosinophil (Absolute #) 0.01 x10^3/uL (0-0.5); Hematocrit 26.8 % (35-47); Hemoglobin 7.6 g/dL (12.0-16.0); IMMATURE GRAN # 0.07 x10^3u/L (0.00-0.03); IMMATURE GRAN % 0.6 % (0.00-0.4); Lymphocyte (Absolute #) 1.69 x10^3/uL (1.0-4.6); Lymphocytes % 13.9 % (24.0-44.0); Mean Corpuscular Hemoglobin 23.2 pg (26-32); Mean Corpuscular Hgb Concent. 28.4 g/dL (32-36); Mean Platelet Volume 9.7 fL (7.5-11.0); Monocytes % 6.6 % (0.0-12.0); Neutrophil % 78.4 % (36.0-66.0); Platelet Count 440 x10^3/uL (150-450); Red Blood Count 3.27 x10^6/uL (4.1-5.4); Red Cell Distribution Width 17.8 % (11.5-14.0); White Blood Count 12.1 x10^3/uL (4.0-10.5)
[2022-11-07 05:43] LABS: ALBUMIN 3.1 g/dL (3.5-5.0); ALKALINE PHOSPHATASE 50 U/L (38-126); ANION GAP 8.6 MEQ/L (5-15); BLOOD UREA NITROGEN 22 mg/dL (7-17); CHLORIDE 106 mmol/L (98-107); Calcium 6.4 mg/dL (8.4-10.2); Carbon Dioxide 28 mmol/L (22-30); Creatinine 1 0.94 mg/dL (0.52-1.04); EST GLOMERULAR FILTRATION RATE > 60.0 ML/MIN; Glucose 108 mg/dL (74-106); SGOT/AST 23 U/L (14-36); SGPT/ALT 17 U/L (0-35); SODIUM 139 mmol/L (137-145); Total Protein 5.7 g/dL (6.3-8.2)
[2022-11-07 06:27] LABS: Slide Review 1 YES
[2022-11-07] MEDS: PIPERACILLIN/TAZOBACTAM 3.375 GM in Sodium Chloride 100ML MINI-BAG PLUS 100 ML IV SCH ×3 (06:29→17:07)
[2022-11-07] MEDS: Spiriva 18 Mcg/Cap Inhaler IH SCH (07:09)
[2022-11-07] MEDS: Advair Hfa 230/21 Mcg COMMON CANISTER IH SCH (07:09)
[2022-11-07] MEDS: SYNTHROID 112 MCG PO SCH (07:13)
[2022-11-07] MEDS: NORCO 5/325 MG PO PRN ×2 (07:13→21:21)
[2022-11-07] MEDS: celeBREX 100 MG PO SCH (08:30)
[2022-11-07] MEDS: Neurontin PO SCH ×2 (08:30→21:23)
[2022-11-07] MEDS: SYNTHROID 25 MCG PO SCH (08:30)
[2022-11-07] MEDS: Protonix 40MG Tablet PO SCH ×2 (08:30→21:22)
--- NOTE | 2022-11-07 08:40 | PCM.DS ---
Discharge Summary Date of Admission: 11/05/22 22:11 Admitting Physician: YUNIER PATEL MD Primary Care Provider: DUONG YAN Allergies Allergies No Known Drug Allergies Allergy (Verified 11/05/22 18:16) Hospital Summary - Hospital Course Hospital Course: Pt is a 72 yo female with COPD and chronic anemia who came to ER with abd pain and vomiting and was found to have appendicitis. She had an appendectomy with surgery, thank you, and is now doing well post-op day #2. She was also found to have UTI and was started on IV zosyn (day #3). Her culture was negative preliminarily; if it is negative final (today), will be discharged to home without any antibiotics. She is tolerating po. Passed lots of flatus. Was up out of bed without issues. Does have some abd pain but it is fairly well controlled with norco 5/325. She will f/u with surgery and with PCP in 1 week. - Vitals & Intake/Output Vital Signs: Vital Signs Temperature 97.3 F 11/07/22 07:22 Pulse Rate 63 11/07/22 07:22 Respiratory Rate 17 11/07/22 07:22 Blood Pressure 108/52 11/07/22 07:22 O2 Sat by Pulse Oximetry 93 L 11/07/22 07:22 Intake & Output: Intake & Output 11/04/22 11/05/22 11/06/22 11/07/22 11:59 11:59 11:59 11:59 Intake Total 961 3221 Balance 961 3221 Weight 96 kg - Lab Result Diagrams: 11/07/22 04:51 11/07/22 04:51 Lab Results-Last 24 Hrs: Lab Results-Last 24 Hours 11/07/22 11/07/22 Range/Units 04:51 04:51 WBC 12.1 H (4.0-10.5) x10^3/uL RBC 3.27 L (4.1-5.4) x10^6/uL Hgb 7.6 L (12.0-16.0) g/dL Hct 26.8 L (35-47) % MCV 82.0 (78-100) fL MCH 23.2 L (26-32) pg MCHC 28.4 L (32-36) g/dL RDW 17.8 H (11.5-14.0) % Plt Count 440 (150-450) x10^3/uL MPV 9.7 (7.5-11.0) fL Gran % 78.4 H (36.0-66.0) % Immature Gran % (Auto) 0.6 H (0.00-0.4) % Nucleat RBC Rel Count 0.0 (0.00-0.1) % Eos # (Auto) 0.01 (0-0.5) x10^3/uL Immature Gran # (Auto) 0.07 H (0.00-0.03) x10^3u/L Absolute Lymphs (auto) 1.69 (1.0-4.6) x10^3/uL Absolute Monos (auto) 0.80 (0.0-1.3) x10^3/uL Absolute Nucleated RBC 0.00 (0.00-0.01) x10^3u/L Lymphocytes % 13.9 L (24.0-44.0) % Monocytes % 6.6 (0.0-12.0) % Eosinophils % 0.1 (0.00-5.0) % Basophils % 0.4 (0.0-0.4) % Absolute Granulocytes 9.51 H (1.4-6.9) x10^3/uL Basophils # 0.05 (0-0.4) x10^3/uL Sodium 139 (137-145) mmol/L Potassium 4.0 (3.5-5.1) mmol/L Chloride 106 (98-107) mmol/L Carbon Dioxide 28 (22-30) mmol/L Anion Gap 8.6 (5-15) MEQ/L BUN 22 H (7-17) mg/dL Creatinine 0.94 (0.52-1.04) mg/dL Estimated GFR > 60.0 ML/MIN Glucose 108 H (74-106) mg/dL Calcium 6.4 L (8.4-10.2) mg/dL Total Bilirubin 0.30 (0.2-1.3) mg/dL AST 23 (14-36) U/L ALT 17 (0-35) U/L Alkaline Phosphatase 50 (38-126) U/L Serum Total Protein 5.7 L (6.3-8.2) g/dL Albumin 3.1 L (3.5-5.0) g/dL Slides for Path Review YES Micro Results-Entire Visit: Microbiology 11/05/22 18:47 Urine Culture - Final Urine, Void NO GROWTH - Radiology Exams Ordered Rad Exams-Entire Visit: Radiology Procedures Category Date Time Status ABDOMEN AND PELVIS W/0 CONTRAS [CT] Stat Exams 11/05/22 18:43 Completed - Procedures and Test Procedures and Tests throughout Hospitalization: Therapy Orders & Screens 11/05/22 22:33 Incentive Spirometry TID Comment: Diagnosis: Acute appendicitis, leukocytosis Respiratory Therapy Assessment DAILY Comment: Diagnosis: Acute appendicitis, leukocytosis 11/05/22 22:55 Oxygen NASAL CANNULA 2.5 lpm Comment: Diagnosis: Acute appendicitis, leukocytosis 11/05/22 23:27 RT Screen per Nursing Assess ONCE Comment: Protocol Order Physician Instructions: Greater than 3 points order RT Admission Screen Reason For Exam: Triggered on Admission Diagnosis: Acute appendicitis, leukocytosis Diagnosis: Acute appendicitis, leukocytosis Pneumonia: No Home O2: Yes Asthma: No Home CPAP/BIPAP: No Home Nebs/MDI: Yes: as needed Total Points: 10 11/06/22 07:00 Respiratory MDI BID Comment: SYMBICORT 2 PUFFS BID Diagnosis: Acute appendicitis, leukocytosis Discharge Exam General Appearance: no apparent distress, alert, obese Neurologic Exam: oriented x 3, cooperative Eye Exam: eyes nml inspection Ears, Nose, Throat Exam: moist mucous membranes Neck Exam: normal inspection Respiratory Exam: normal breath sounds, lungs clear, No crackles/rales, No rhonchi, No wheezing Cardiovascular Exam: regular rate/rhythm, normal heart sounds, No murmur Gastrointestinal/Abdomen Exam: soft, normal bowel sounds, other (dressings c/ d/i), No tenderness, No distention, No mass, No guarding, No rebound Back Exam: normal inspection, No rash Extremity Exam: normal inspection, No pedal edema, No swelling Skin Exam: normal color, warm, dry, No rash Final Diagnosis/Problem List - Final Discharge Diagnosis/Problem (1) S/P appendectomy Current Visit: Yes Status: Acute Assessment & Plan: POD #2, doing great clinically. If UCx is neg later today, will be fine to discharge home as long as it's cleared by surgery. Code(s): Z90.49 - ACQUIRED ABSENCE OF OTHER SPECIFIED PARTS OF DIGESTIVE TRACT (2) UTI (urinary tract infection) Current Visit: Yes Status: Suspected Code(s): N39.0 - URINARY TRACT INFECTION, SITE NOT SPECIFIED (3) Microcytic anemia Current Visit: No Status: Chronic Assessment & Plan: Her hgb is 7.6 today. Staff is calling DR. Ace's office, to see if they want her to have outpatient iron infusions, or even transfusion. Will order f/u CBC tomorrow to ensure blood count not dropping due to post-surgical issue. She did have BP 85 systolic last night, but most of her BP have been low 100s systolic and her highest this entire hospitalization was 123 systolic, so I think this is due to being asleep on top of chronically lower BPs. Code(s): D50.9 - IRON DEFICIENCY ANEMIA, UNSPECIFIED (4) Type 2 diabetes mellitus Current Visit: No Status: Chronic - Discharge Disposition: Home, Self-Care Condition: Stable Prescriptions: Continue Levothyroxine Sodium 137 mcg PO DAILY Omeprazole 20 MG [Prilosec 20 mg] 20 mg PO BID Escitalopram Oxalate [Lexapro] 10 mg PO HS Gabapentin [Neurontin ] 400 mg PO BID Ropinirole HCl 2 mg PO HS Budesonide/Formoterol Fumarate [Symbicort 160-4.5 Mcg Inhaler] 0 gm IH BID Albuterol Sulfate [Albuterol Sulfate Hfa] 8.5 gm IH Q4HPRN PRN PRN Reason: Shortness Of Breath/Wheezing Celecoxib 100 mg [celeBREX 100 MG] 200 mg PO DAILY Hydrocodone/Acetaminophen [Hydrocodone-Acetamin 5-325 mg] 1 tab PO Q4HPRN PRN MDD 6 PRN Reason: Pain Tiotropium [place] [Spiriva Respimat] 0 gm IH UD Follow up with: JOJO LARSON [COURTESY STAFF] - 11/18/22 8:20 am (at [facility]way ) DUONG YAN NP [Primary Care Provider] - 11/12/22 10:45 am
[2022-11-07] MEDS ORDERED: SYNTHROID 100 MCG PO SCH (10:00)
[2022-11-07] MEDS ORDERED: SYNTHROID 75 MCG PO SCH (10:00)
[2022-11-07 12:41] LABS: 027 TOX PROD PRESUMPTIVE NEGATIVE (NEGATIVE); TOXIGENIC C. DIFF ORG NEGATIVE (NEGATIVE)
[2022-11-07] MEDS: IMODIUM 2 MG PO PRN ×5 (13:58→22:34)
[2022-11-07] MEDS ORDERED: IMODIUM 2 MG PO ONE (14:05)
[2022-11-07] MEDS: REQUIP 2MG TAB PO SCH (21:21)
[2022-11-07] MEDS: Lexapro PO SCH (21:22)
[2022-11-08] MEDS: Sodium Chloride 0.9% 1000 ML 1,000 ML IV SCH ×2 (00:15→00:41)
[2022-11-08] MEDS: PIPERACILLIN/TAZOBACTAM 3.375 GM in Sodium Chloride 100ML MINI-BAG PLUS 100 ML IV SCH ×2 (00:42→06:32)
[2022-11-08 04:51] LABS: Hematocrit 27.3 % (35-47); Hemoglobin 7.5 g/dL (12.0-16.0); Mean Cell Volume 83.5 fL (78-100); Mean Corpuscular Hemoglobin 22.9 pg (26-32); Mean Corpuscular Hgb Concent. 27.5 g/dL (32-36); Mean Platelet Volume 9.8 fL (7.5-11.0); Platelet Count 409 x10^3/uL (150-450); Red Blood Count 3.27 x10^6/uL (4.1-5.4); Red Cell Distribution Width 17.9 % (11.5-14.0); White Blood Count 10.4 x10^3/uL (4.0-10.5)
[2022-11-08] MEDS ORDERED: MORPHINE SULFATE 4 MG INJ IV PRN (04:58)
[2022-11-08] MEDS ORDERED: MORPHINE SULFATE 4 MG INJ IV SCH (05:00)
[2022-11-08 07:10] LABS: Slide Review YES
[2022-11-08] MEDS: Advair Hfa 230/21 Mcg COMMON CANISTER IH SCH (07:50)
[2022-11-08] MEDS: Spiriva 18 Mcg/Cap Inhaler IH SCH (07:52)
[2022-11-08] MEDS: SYNTHROID 112 MCG PO SCH (08:20)
[2022-11-08] MEDS: SYNTHROID 25 MCG PO SCH (08:20)
[2022-11-08] MEDS ORDERED: DIFLUCAN PO ONE (08:30)
[2022-11-08] MEDS: Protonix 40MG Tablet PO SCH (08:55)
[2022-11-08] MEDS: celeBREX 100 MG PO SCH (08:55)
[2022-11-08] MEDS: Neurontin PO SCH (08:55)
[2022-11-08] MEDS ORDERED: Acidophilus TABLET PO SCH (10:00)
--- NOTE | 2022-11-08 10:57 | XRAY ---
Indication: Urinary hesitancy. Two-dimensional ultrasound of the urinary bladder performed. Comparison: None Urinary bladder normally distended without focal bladder mass or wall thickening. Ureteral jets not seen within the allotted exam time. Prevoid bladder volume is 167 cc. Postvoid volume is 86 cc. Impression: Urinary post void residual as above.
--- NOTE | 2022-11-08 11:51 | PCM.DS ---
Discharge Summary Date of Admission: 11/05/22 22:11 Admitting Physician: YUNIER PATEL MD Primary Care Provider: DUONG YAN Allergies Allergies No Known Drug Allergies Allergy (Verified 11/05/22 18:16) Hospital Summary - Hospital Course Hospital Course: Pt is a 72 yo female with COPD and chronic anemia who came to ER with abd pain and vomiting and was found to have appendicitis. She had an appendectomy with surgery, thank you, and is now doing well post-op day #3. She has chronic anemia and her hgb decreased from 10.6 initially to 7.6 yesterday. Is stable at 7.5 today. Results have been sent to her hack saw operator Dr. Ace; they have been discussng outpatient iron infusions. She was also thought to have UTI and was started on IV zosyn (day #4). Her final culture is negative so will be discharged to home without any antibiotic. She started having diarrhea yesterday and was neg for c. diff so given immodium with some relief. Had diarrhea x 1 this morning. Did have GRID MOLDER but thought was related to her appendicitis. complains this morning of vaginal itching (worse last night, worried about yeast infection). Also was SOB last night, but has resolved. Her ears were draining and felt stopped up last night but feeling better now. She is tolerating po. Passed lots of flatus. Was up out of bed without issues. Does have some abd pain but it is fairly well controlled with norco 5/325. She will f/u with surgery and with PCP in 1 week. - Vitals & Intake/Output Vital Signs: Vital Signs Temperature 98.0 F 11/08/22 07:45 Pulse Rate 64 11/08/22 07:55 Respiratory Rate 18 11/08/22 07:55 Blood Pressure 100/56 11/08/22 07:45 O2 Sat by Pulse Oximetry 95 11/08/22 07:55 Intake & Output: Intake & Output 11/05/22 11/06/22 11/07/22 11/08/22 11:59 11:59 11:59 11:59 Intake Total 961 [id number] 3580 Balance 961 3461 3580 Weight 96 kg - Lab Result Diagrams: 11/08/22 04:52 11/07/22 04:51 Lab Results-Last 24 Hrs: Lab Results-Last 24 Hours 11/07/22 11/08/22 Range/Units 11:54 04:52 WBC 10.4 (4.0-10.5) x10^3/uL RBC 3.27 L (4.1-5.4) x10^6/uL Hgb 7.5 L (12.0-16.0) g/dL Hct 27.3 L (35-47) % MCV 83.5 (78-100) fL MCH 22.9 L (26-32) pg MCHC 27.5 L (32-36) g/dL RDW 17.9 H (11.5-14.0) % Plt Count 409 (150-450) x10^3/uL MPV 9.8 (7.5-11.0) fL C. difficile Screen NEGATIVE (NEGATIVE) C.difficile [id number] PRESUMPTIVE NEGATIVE (NEGATIVE) Slides for Path Review YES Micro Results-Entire Visit: Microbiology 11/05/22 18:47 Urine Culture - Final Urine, Void NO GROWTH - Radiology Exams Ordered Rad Exams-Entire Visit: Radiology Procedures Category Date Time Status BLADDER [US] Routine Exams 11/08/22 08:25 Completed - Procedures and Test Procedures and Tests throughout Hospitalization: Therapy Orders & Screens 11/05/22 22:33 Incentive Spirometry TID Comment: Diagnosis: Acute appendicitis, leukocytosis Respiratory Therapy Assessment DAILY Comment: Diagnosis: Acute appendicitis, leukocytosis 11/05/22 22:55 Oxygen NASAL CANNULA 2.5 lpm Comment: Diagnosis: Acute appendicitis, leukocytosis 11/05/22 23:27 RT Screen per Nursing Assess ONCE Comment: Protocol Order Physician Instructions: Greater than 3 points order RT Admission Screen Reason For Exam: Triggered on Admission Diagnosis: Acute appendicitis, leukocytosis Diagnosis: Acute appendicitis, leukocytosis Pneumonia: No Home O2: Yes Asthma: No Home CPAP/BIPAP: No Home Nebs/MDI: Yes: as needed Total Points: 10 11/06/22 07:00 Respiratory MDI BID Comment: SYMBICORT 2 PUFFS BID Diagnosis: Acute appendicitis, leukocytosis Discharge Exam General Appearance: no apparent distress, alert Neurologic Exam: oriented x 3, cooperative Eye Exam: eyes nml inspection Ears, Nose, Throat Exam: TMs normal, pharynx normal, moist mucous membranes, No pharyngeal erythema Neck Exam: normal inspection Respiratory Exam: normal breath sounds, lungs clear, No crackles/rales, No rhonchi, No wheezing Cardiovascular Exam: regular rate/rhythm, normal heart sounds, No murmur Gastrointestinal/Abdomen Exam: soft, normal bowel sounds, tenderness (RUQ), other (dressings c/d/i), No distention, No mass, No guarding, No rebound Back Exam: normal inspection, No rash Extremity Exam: normal inspection, swelling (1+ pretibial edema bilat.) Skin Exam: normal color, warm, dry, No rash Final Diagnosis/Problem List - Final Discharge Diagnosis/Problem (1) S/P appendectomy Current Visit: Yes Status: Acute Assessment & Plan: POD #3, doing great, home without antibiotics. Code(s): Z90.49 - ACQUIRED ABSENCE OF OTHER SPECIFIED PARTS OF DIGESTIVE TRACT (2) UTI (urinary tract infection) Current Visit: Yes Status: Ruled-out Assessment & Plan: UCx neg Code(s): N39.0 - URINARY TRACT INFECTION, SITE NOT SPECIFIED (3) Microcytic anemia Current Visit: No Status: Chronic Assessment & Plan: hgb stable at 7.5, discussed w pt Code(s): D50.9 - IRON DEFICIENCY ANEMIA, UNSPECIFIED (4) Type 2 diabetes mellitus Current Visit: No Status: Chronic (5) Vaginal candidiasis Current Visit: Yes Status: Acute Assessment & Plan: diflucan given x 1 Code(s): B37.31 - ACUTE CANDIDIASIS OF VULVA AND VAGINA (6) Nasal congestion Current Visit: Yes Status: Acute Assessment & Plan: resume flonase. Code(s): R09.81 - NASAL CONGESTION (7) COPD (chronic obstructive pulmonary disease) Current Visit: No Status: Chronic Assessment & Plan: home on O2. Desat to 66% when up to bathroom w/o O2. (8) Chronic hypoxemic respiratory failure Current Visit: No Status: Chronic (9) Acute diarrhea Current Visit: Yes Status: Acute Assessment & Plan: neg for c. diff. Did add probiotic. Immodium prn. If persistent, if any fever or blood in the stool, f/u with PCP immediately or return to ER. Code(s): R19.7 - DIARRHEA, UNSPECIFIED - Discharge Disposition: Home, Self-Care Condition: Stable Prescriptions: New Lactobacillus Acidophilus [Acidophilus TABLET] 1 tab PO TID tablet Loperamide HCl 2 mg [Imodium 2 mg] 2 mg PO PRN PRN cap PRN Reason: Diarrhea Continue Levothyroxine Sodium 137 mcg PO DAILY Omeprazole 20 MG [Prilosec 20 mg] 20 mg PO BID Escitalopram Oxalate [Lexapro] 10 mg PO HS Gabapentin [Neurontin ] 400 mg PO BID Ropinirole HCl 2 mg PO HS Budesonide/Formoterol Fumarate [Symbicort 160-4.5 Mcg Inhaler] 0 gm IH BID Albuterol Sulfate [Albuterol Sulfate Hfa] 8.5 gm IH Q4HPRN PRN PRN Reason: Shortness Of Breath/Wheezing Celecoxib 100 mg [celeBREX 100 MG] 200 mg PO DAILY Hydrocodone/Acetaminophen [Hydrocodone-Acetamin 5-325 mg] 1 tab PO Q4HPRN PRN MDD 6 PRN Reason: Pain Tiotropium [place] [Spiriva Respimat] 0 gm IH UD Outpatient Orders: CBC W DIFF Time Frame: 1 Day, Facility: [facility], Location: LABORATORY Additional Instructions: WEAR 3L/NC AT ALL TIMES AT HOME [employer] PHONE #- ( PRIVATE [employer]) Follow up with: JOJO LARSON [COURTESY STAFF] - 11/18/22 8:20 am (at [facility] ) DUONG YAN NP [Primary Care Provider] - 11/12/22 10:45 am
[2022-11-08 13:46] VITALS: BP 124/58; PULSE 76; O2SAT 97
== END 2022-11-08 15:35 | disposition home or self-care (01) ==
LOC: ED 17:59 → MED SURG 22:11
PROVIDERS: ADMIT Internal Medicine Critical Care Medicine; ATTEND Family Medicine
DX: K35.80 Unspecified acute appendicitis (principal); N39.0 Urinary tract infection, site not specified; J44.9 Chronic obstructive pulmonary disease, unspecified; D50.9 Iron deficiency anemia, unspecified; E11.9 Type 2 diabetes mellitus without complications; B37.31 Acute candidiasis of vulva and vagina; R19.7 Diarrhea, unspecified; J96.11 Chronic respiratory failure with hypoxia; E03.9 Hypothyroidism, unspecified; Z79.899 Other long term (current) drug therapy; Z20.828 Contact with and (suspected) exposure to other viral communicable diseases
CPT/HCPCS: 00840; 0241U; 36000; 36415; 44970; 74176; 76705; 80048; 80053; 81001; 83690; 84443; 84484; 85025; 85027; 87086; 87493; 94640; 94760; 94762; 96365; 96374; 96375; 99100; 99140; 99285; G0378; J1100; J1885; J2270; J2405; J2704; J3010; J3475; A9270-GY

== ENCOUNTER 2024-09-17 06:07 | Day surgery (SDC) | payer MEDICARE ==
[2024-09-17 06:46] LABS: Absolute Neutrophil Ct (ANC) 6.58 x10^3/uL (1.56-6.13); BASOPHIL % 0.7 % (0.1-1.2); Basophil (Absolute #) 0.06 x10^3/uL (0.01-0.08); Eosinophil % 0.6 % (0.7-5.8); Eosinophil (Absolute #) 0.05 x10^3/uL (0.04-0.36); Hematocrit 32.1 % (34.1-44.9); Hemoglobin 9.3 g/dL (11.2-15.7); IMMATURE GRAN # 0.07 x10^3u/L (0.001-0.031); IMMATURE GRAN % 0.8 % (0.001-0.429); Lymphocyte (Absolute #) 1.45 x10^3/uL (1.18-3.74); Mean Cell Volume 78.3 fL (79.4-94.8); Mean Corpuscular Hemoglobin 22.7 pg (25.6-32.2); Mean Platelet Volume 9.2 fL (9.4-12.3); Monocyte (Absolute #) 0.84 x10^3/uL (0.24-0.86); Monocytes % 9.3 % (4.7-12.5); Neutrophil % 72.6 % (34.0-71.1); Platelet Count 464 x10^3/uL (182-369); Red Cell Distribution Width 18.4 % (11.7-14.4); White Blood Count 9.1 x10^3/uL (3.98-10.04)
[2024-09-17 06:47] VITALS: RESP 16
[2024-09-17] MEDS ORDERED: Lactated Ringers 1,000 ML IV ONE (06:47)
[2024-09-17] MEDS: Lactated Ringers 1,000 ML IV SCH (06:51)
[2024-09-17 06:55] LABS: ANION GAP 14.6 MEQ/L (5-15); Calcium 8.5 mg/dL (8.4-10.2); Creatinine 1 1.05 mg/dL (0.52-1.04); EST GLOMERULAR FILTRATION RATE 55.4 ML/MIN; Potassium 3.7 mmol/L (3.5-5.1)
[2024-09-17] MEDS ORDERED: propofoL IV ONE (07:44)
[2024-09-17 09:38] VITALS: BP 117/57; PULSE 76; TEMP 98.6; O2SAT 94
--- NOTE | 2024-09-20 08:59 | OP ---
SURGERY DATE/TIME: 09/17/2024 1205-0245 PREOPERATIVE DIAGNOSIS: Gastrointestinal bleeding and anemia. POSTOPERATIVE DIAGNOSIS: Duodenitis. PROCEDURE: Esophagogastroduodenoscopy. SURGEON: Ti Beatty MD ANESTHESIA: Medications were given by the anesthesia department. INDICATIONS: The patient is a 74-year-old white female who has been having problems with anemia. She apparently had a transfusion of 3 units of blood when she had her shoulder surgery done. The patient has persisted to have some anemia and had some blood noted in the stool. She had a Cologuard test which also came back positive for blood. It is of note the patient is on Celebrex 100 mg twice a day and has been so for quite some time. The patient was felt the need to have endoscopic evaluation. She was originally scheduled for an EGD and colonoscopy; however, they scheduled it as a screening colon exam and the patient had previous polyps, and despite the fact that there was blood, the insurance company would not pay for a screening colonoscopy. We went ahead and did the upper endoscopy for the patient. The patient was apprised of the risks of the procedure including risk of perforation, phlebitis, untoward reaction to medication, sore throat, and vocal cord injury. The patient verbalized her understanding and desire to have procedure performed. DESCRIPTION OF PROCEDURE AND FINDINGS: The patient was given medication by the anesthesia department. She had continuous pulse oximetry, ECG monitoring, and intermittent blood pressure monitoring during the examination. She was placed in the left lateral decubitus position. A bite block was placed, and a flexible Olympus gastroscope was used to intubate the oropharynx. A view of the larynx was obtained and was normal. Scope was entered in the esophagus, which appeared to be normal throughout its length. There was a small hiatal hernia noted. Upon entry into the stomach, there was a little punctate area that appeared to have been possibly recently bleeding, but no active bleeding was occurring at this time. The scope was passed in the stomach. With insufflation, the gastric rugal folds distended nicely. There was no evidence of other erosions or ulcerations noted in this area. The pylorus was encountered and intubated. The duodenum was inspected and found to have also 2 other punctate areas that appeared to be with suspicion for recent bleeding but no active bleeding at this time. Scope was withdrawn towards the stomach. Retroflexed view was obtained of the lesser curvature, fundus, and cardia regions of the stomach, which appeared to be essentially normal. The scope was then removed from the patient, who tolerated the procedure well and sent back to outpatient recovery in good condition.
== END 2024-09-17 09:46 | disposition home or self-care (01) ==
LOC: SDC 06:07
PROVIDERS: ATTEND Family Medicine
DX: K92.2 Gastrointestinal hemorrhage, unspecified (principal); D64.9 Anemia, unspecified; K44.9 Diaphragmatic hernia without obstruction or gangrene
CPT/HCPCS: 36415; 80048; 85025; J2704

== ENCOUNTER 2024-12-14 06:21 | Day surgery (SDC) | payer MEDICARE ==
[2024-12-14] MEDS ORDERED: Lactated Ringers 1,000 ML IV ONE (07:05)
[2024-12-14 07:06] VITALS: TEMP 97.3; O2SAT 94
[2024-12-14] MEDS: Lactated Ringers 1,000 ML IV SCH (07:09)
[2024-12-14] MEDS ORDERED: Xylocaine-Mpf 2% 5 Ml Vial ONE (07:56)
[2024-12-14] MEDS ORDERED: propofoL IV ONE ×2 (07:56→08:15)
[2024-12-14] MEDS ORDERED: ROBINUL ONE (08:10)
[2024-12-14] MEDS ORDERED: ATROPINE SULFATE 1MG ONE (08:15)
[2024-12-14 09:07] VITALS: BP 102/47; PULSE 93; RESP 20
--- NOTE | 2024-12-15 09:42 | OP ---
SURGERY DATE/TIME: 12/14/2024 [id number] PREOPERATIVE DIAGNOSES: 1) Anemia. 2) History of colon polyps. POSTOPERATIVE DIAGNOSES: 1) Ascending colon polyp. 2) Sigmoid diverticulosis. PROCEDURE: Colonoscopy with hot snare polypectomy. SURGEON: Ti Beatty MD ANESTHESIA: Medication given by the Anesthesia department. HISTORY: The patient is a 74-year-old white female presenting now for history of anemia. The patient reports she has had an upper GI done previously but had not had a colonoscopy. She also reports she has had a history of colon polyps. The patient was felt to need to have colonoscopic evaluation. She was appraised of the risks of the procedure including risk of perforation, phlebitis, untoward reaction to medication, bleeding and missed lesions. The patient verbalized her understanding and desired to have procedure performed. DESCRIPTION OF PROCEDURE AND FINDINGS: Patient was given medication by the Anesthesia department. She had continuous pulse oximetry, ECG monitoring, and intermittent blood pressure monitoring during the examination. She was placed in the left lateral decubitus position. A digital rectal examination was performed and revealed normal anal sphincter tone and no masses. The flexible Olympus colonoscope was used to intubate the rectum. A view of the colon was developed sequentially to the cecum. Upon insertion and withdrawal, was noted moderate to severe sigmoid diverticulosis. There was also an approximately 1 cm ascending colon polyp. This was first biopsied using the cold forceps technique and then, removed using the hot polypectomy snare and retrieved for pathologic evaluation. No other mucosal lesions would be encountered. The scope was removed. The patient tolerated the procedure well and was sent back to outpatient recovery in good condition. The prep was noted to be fairly good.
== END 2024-12-14 09:23 | disposition home or self-care (01) ==
LOC: SDC 06:21
PROVIDERS: ATTEND Family Medicine
DX: D64.9 Anemia, unspecified (principal); Z86.0100 Personal history of colon polyps, unspecified; K57.30 Diverticulosis of large intestine without perforation or abscess without bleeding; D12.2 Benign neoplasm of ascending colon
CPT/HCPCS: 99100; J0461; J2704